=== PATIENT | male | born 1960 | race Caucasian/White ===

== ENCOUNTER 2016-05-09 01:36 | Inpatient (IN) | payer MEDICARE, OTHER ==
[2016-05-09] MEDS ORDERED: SODIUM CHLORIDE 0.9% 1,000 ML IV STA (01:47)
[2016-05-09] MEDS ORDERED: IPRATROPIUM-ALBUTEROL 3 ML NEB INHALATION STA (01:48)
[2016-05-09] MEDS ORDERED: ACETAMINOPHEN TAB 500 MG TAB PO STA (01:56)
[2016-05-09] MEDS ORDERED: guaiFENesin-DM 600/30MG 1 EACH TAB.ER.12H PO STA (01:57)
--- NOTE | 2016-05-09 02:01 | ED ---
General Adult HPI - General Chief complaint: Chest Pain Stated complaint: Chest Pain/SOB Time Seen by Provider: 05/09/16 01:46 Source: patient, RN notes reviewed Mode of arrival: wheelchair Limitations: no limitations - History of Present Illness Initial comments: Patient is a 55-year-old male with a chief complaint of a productive cough for approximately 3 days. Patient reports that over the past day he has developed chest pain, which patient relates to this cough. Patient reports that he feels as if he is not able to lay totally flat and that makes him become short of breath. He has a significant past medical history of quadruple bypass, hypertension, is a smoker and diabetes. Patient reports that his blood sugars have been uncontrolled over the past few months. Patient states that he initially HAD A cold but he feels is now settled into the lower lungs. He has had no Motrin or Tylenol but does present emergency department with a fever and chills. Patient states that he also has coughed so hard to the point where he has felt that he needs to vomit. Patient denies any recent fback pain, abdominal pain, nausea vomiting, numbness or tingling, dysuria or hematuria, constipation or diarrhea, headaches or visual changes, or any other current symptoms - Related Data Home Medications Medication Instructions Recorded Confirmed Clopidogrel [Plavix] 75 mg PO DAILY 08/16/13 05/09/16 Isosorbide Mononitrate [Imdur] 60 mg PO DAILY 08/16/13 05/09/16 amLODIPine [Norvasc] 5 mg PO DAILY 08/16/13 05/09/16 metFORMIN HCL 1,000 mg PO BID 08/16/13 05/09/16 Atorvastatin [Lipitor] 80 mg PO HS 12/02/14 05/09/16 Carvedilol [Coreg] 3.125 mg PO BID 12/02/14 05/09/16 Losartan [Cozaar] 25 mg PO DAILY 12/02/14 05/09/16 Montelukast [Singulair] 10 mg PO DAILY 12/02/14 05/09/16 Spironolactone [Aldactone] 25 mg PO DAILY 12/02/14 05/09/16 Atenolol [Tenormin] 50 mg PO BID 05/19/15 05/09/16 Famotidine [Pepcid] 40 mg PO HS 05/19/15 05/09/16 Insulin Detemir [Levemir] 48 unit SQ HS 05/19/15 05/09/16 Metoprolol Tartrate [Lopressor] 50 mg PO BID 05/19/15 05/09/16 Metoprolol Tartrate [Lopressor] 100 mg PO BID 05/19/15 05/09/16 Allergies Allergy/AdvReac Type Severity Reaction Status Date / Time No Known Allergies Allergy Verified 05/09/16 01:43 Review of Systems ROS Statement: Those systems with pertinent positive or pertinent negative responses have been documented in the HPI. ROS Other: All systems not noted in ROS Statement are negative. Past Medical History Past Medical History: Coronary Artery Disease (CAD), Chest Pain / Angina, Heart Failure, COPD, Diabetes Mellitus, Hyperlipidemia, Hypertension, Myocardial Infarction ([place]), Pneumonia Additional Past Medical History / Comment(s): X5 [place] Last Myocardial Infarction Date:: 2012 History of Any Multi-Drug Resistant Organisms: MRSA Date of last positivie culture/infection: 08/04/2010 MDRO Source:: right leg wound Past Surgical History: Coronary Bypass/CABG, Heart Catheterization With Stent, Hernia Repair Additional Past Surgical History / Comment(s): QUAD BYPASS, LT INGUINAL HERNIA REPAIR RT HAND RING FINGER LOST TIP OF FINGER, PT STATED HAS 5 CARDIAC STENTS, Past Anesthesia/Blood Transfusion Reactions: No Reported Reaction Date of Last Stent Placement:: 2012 Past Psychological History: No Psychological Hx Reported Smoking Status: Current every day smoker Past Alcohol Use History: None Reported Additional Past Alcohol Use History / Comment(s): STARTED SMOKING AT AGE 11 SMOKES 2 PACKS EVERY 3 DAYS Past Drug Use History: None Reported - Past Family History Father Additional Family Medical History / Comment(s): AT AGE 46 FROM COMPLICATIONS FROM ALCOHOLISM Mother Family Medical History: Cancer Additional Family Medical History / Comment(s): AT AGE 71 CANCER General Exam - General Exam Comments Initial Comments: Patient is a pleasant 55-year-old male. He is having a significant productive cough and does appear to be ill. Limitations: no limitations General appearance: alert, in no apparent distress Head exam: Present: atraumatic, normocephalic, normal inspection Eye exam: Present: normal appearance, PERRL, EOMI. Absent: scleral icterus, conjunctival injection, periorbital swelling ENT exam: Present: normal exam, mucous membranes moist. Absent: normal oropharynx (Erythematous oropharynx) Neck exam: Present: normal inspection. Absent: tenderness, meningismus, lymphadenopathy Respiratory exam: Present: normal lung sounds bilaterally, wheezes (Bilateral wheezes and rhonchi), rhonchi, other (Significant productive cough.). Absent: respiratory distress, rales, stridor Cardiovascular Exam: Present: regular rate, normal rhythm, normal heart sounds. Absent: systolic murmur, diastolic murmur, rubs, gallop, clicks GI/Abdominal exam: Present: soft, normal bowel sounds. Absent: distended, tenderness, guarding, rebound, rigid Extremities exam: Present: normal inspection, full ROM, normal capillary refill. Absent: tenderness, pedal edema, joint swelling, calf tenderness Back exam: Present: normal inspection Neurological exam: Present: alert, oriented X3, CN II-XII intact Psychiatric exam: Present: normal affect, normal mood Skin exam: Present: warm, dry, intact, normal color. Absent: rash Course Vital Signs 05/09/16 05/09/16 05/09/16 01:38 02:00 02:07 Temperature 99.8 F H Pulse Rate 118 H 110 H 104 H Respiratory 20 Rate Blood Pressure 183/88 O2 Sat by Pulse 97 Oximetry Medical Decision Making - Medical Decision Making Patient is a 55-year-old male with a chief complaint of a productive cough for approximately 3 days. Patient reports that over the past day he has developed chest pain, which patient relates to this cough. He has a significant past medical history of quadruple bypass, hypertension, is a smoker and diabetes. Patient has a white count of 7.4. Sodium 134, potassium 5.8. Patient's glucose is elevated at 307. Patient does have a negative influenza screen. Patient does have an elevated troponin of 0.048. Chest x-ray shows no acute infiltrates however it does show evidence of cardiomegaly. Currently pending BNP. Patient continues to have a productive cough after breathing treatments. Sputum cultures were obtained. Patient was given IV Levaquin, promethazine with codeine, and Mucinex. Patient will be started on IV heparin for NSTEMI of elevated troponin of 0.048. Patient's EKG was reviewed at this time and showed no significant acute changes from previous EKG on May 2015. Patient will be admitted for repeat cardiac enzymes, IV antibiotics and further treatment. Patient is in agreement with the treatment plan will comply. - Lab Data Result diagrams: 05/09/16 02:11 05/09/16 02:11 Lab Results 05/09/16 05/09/16 05/09/16 Range/Units 02:11 02:11 02:11 WBC 7.4 (3.8-10.6) k/uL RBC 5.22 (4.30-5.90) m/uL Hgb 17.1 (13.0-17.5) gm/dL Hct 50.0 (39.0-53.0) % MCV 95.7 (80.0-100.0) fL MCH 32.8 (25.0-35.0) pg MCHC 34.3 (31.0-37.0) g/dL RDW 13.3 (11.5-15.5) % Plt Count 142 L (150-450) k/uL Neutrophils % 77 % Lymphocytes % 13 % Monocytes % 7 % Eosinophils % 2 % Basophils % 1 % Neutrophils # 5.7 (1.3-7.7) k/uL Lymphocytes # 1.0 (1.0-4.8) k/uL Monocytes # 0.5 (0-1.0) k/uL Eosinophils # 0.1 (0-0.7) k/uL Basophils # 0.1 (0-0.2) k/uL PT (9.0-12.0) sec INR (<1.1) APTT (22.0-30.0) sec Sodium 134 L (137-145) mmol/L Potassium 5.8 H (3.5-5.1) mmol/L Chloride 100 (98-107) mmol/L Carbon Dioxide 22 (22-30) mmol/L Anion Gap 12 mmol/L BUN 13 (9-20) mg/dL Creatinine 0.70 (0.66-1.25) mg/dL Est GFR (MDRD) Af Amer >60 (>60 ml/min/1.73 sqM) Est GFR (MDRD) Non-Af >60 (>60 ml/min/1.73 sqM) Glucose 307 H (74-99) mg/dL Plasma Lactic Acid [place] (0.7-2.0) mmol/L Calcium 9.1 (8.4-10.2) mg/dL Magnesium 1.7 (1.6-2.3) mg/dL Total Bilirubin 1.4 H (0.2-1.3) mg/dL AST 50 (17-59) U/L ALT 28 (21-72) U/L Alkaline Phosphatase 96 (38-126) U/L Total Creatine Kinase 135 (55-170) U/L CK-MB (CK-2) 1.0 (0.0-2.4) ng/mL CK-MB (CK-2) Rel Index 0.7 Troponin I 0.048 H* (0.000-0.034) ng/mL Total Protein 7.9 (6.3-8.2) g/dL Albumin 4.5 (3.5-5.0) g/dL Influenza Type A RNA (Not Detectd) Influenza Type B (PCR) (Not Detectd) 05/09/16 05/09/16 05/09/16 Range/Units 02:11 02:11 02:11 WBC (3.8-10.6) k/uL RBC (4.30-5.90) m/uL Hgb (13.0-17.5) gm/dL Hct (39.0-53.0) % MCV (80.0-100.0) fL MCH (25.0-35.0) pg MCHC (31.0-37.0) g/dL RDW (11.5-15.5) % Plt Count (150-450) k/uL Neutrophils % % Lymphocytes % % Monocytes % % Eosinophils % % Basophils % % Neutrophils # (1.3-7.7) k/uL Lymphocytes # (1.0-4.8) k/uL Monocytes # (0-1.0) k/uL Eosinophils # (0-0.7) k/uL Basophils # (0-0.2) k/uL PT 11.4 (9.0-12.0) sec INR 1.1 (<1.1) APTT 27.1 (22.0-30.0) sec Sodium (137-145) mmol/L Potassium (3.5-5.1) mmol/L Chloride (98-107) mmol/L Carbon Dioxide (22-30) mmol/L Anion Gap mmol/L BUN (9-20) mg/dL Creatinine (0.66-1.25) mg/dL Est GFR (MDRD) Af Amer (>60 ml/min/1.73 sqM) Est GFR (MDRD) Non-Af (>60 ml/min/1.73 sqM) Glucose (74-99) mg/dL Plasma Lactic Acid [place] 1.8 (0.7-2.0) mmol/L Calcium (8.4-10.2) mg/dL Magnesium (1.6-2.3) mg/dL Total Bilirubin (0.2-1.3) mg/dL AST (17-59) U/L ALT (21-72) U/L Alkaline Phosphatase (38-126) U/L Total Creatine Kinase (55-170) U/L CK-MB (CK-2) (0.0-2.4) ng/mL CK-MB (CK-2) Rel Index Troponin I (0.000-0.034) ng/mL Total Protein (6.3-8.2) g/dL Albumin (3.5-5.0) g/dL Influenza Type A RNA Not Detected (Not Detectd) Influenza Type B (PCR) Not Detected (Not Detectd) 05/09/16 02:52 EKG shows sinus tachycardia with occasional PVCs. There is evidence of possible left atrial enlargement. Nonspecific and temperature regular block. There is possible inferior infarct age undetermined. Ventricular rate of 104 bpm. AR interval 140 ms. QRS duration 126 ms. QT/UTC 360/473 ms. Compared this EKG from a previous EKG of 05/20/2015. There are similar findings on this EKG as well. I did show Sayed this EKG. - Radiology Data Radiology results: report reviewed Chest x-ray shows Cardiomegaly. Chest x-ray remains unchanged, no evidence of pneumonia or active infiltrates. Disposition Clinical Impression: NSTEMI (non-ST elevated myocardial infarction), Diabetes, Hyperlipemia, Hx of CABG, Chest pain, COPD exacerbation, Fever Disposition: ADMITTED IP TO THIS HOSP Condition: Stable Referrals: Byron Torres MD [Primary Care Provider] - 1-2 days Time of Disposition: 03:57
[2016-05-09] MEDS ORDERED: LEVOFLOXACIN 750MG-D5W PMX 750 MG in DEXTROSE/WATER 1 150ML.BAG IVPB STA (02:13)
[2016-05-09 02:27] LABS: Basophils # (A) 0.1 k/uL (0-0.2); Basophils % (A) 1 %; CH 33.6; CHCM 35.3; Eosinophils # (A) 0.1 k/uL (0-0.7); Eosinophils % (A) 2 %; HGB 17.1 gm/dL (13.0-17.5); Luc # (Auto) 0.11; Luc % (Auto) 2; Lymphocytes % (A) 13 %; MCH 32.8 pg (25.0-35.0); MCHC 34.3 g/dL (31.0-37.0); MCV 95.7 fL (80.0-100.0); Mean Platelet Volume 9.8; Monocytes # (A) 0.5 k/uL (0-1.0); Monocytes % (A) 7 %; Neutrophils # (A) 5.7 k/uL (1.3-7.7); Neutrophils % (A) 77 %; RBC 5.22 m/uL (4.30-5.90); RDW 13.3 % (11.5-15.5); WBC 7.4 k/uL (3.8-10.6); WBC (Perox) 7.08
[2016-05-09 02:40] LABS: ALT 28 U/L (21-72); AST 50 U/L (17-59); Alkaline Phosphatase 96 U/L (38-126); Anion Gap 12 mmol/L; Blood Urea Nitrogen 13 mg/dL (9-20); Calcium 9.1 mg/dL (8.4-10.2); Carbon Dioxide 22 mmol/L (22-30); Chloride 100 mmol/L (98-107); Glucose 307 mg/dL (74-99); Magnesium 1.7 mg/dL (1.6-2.3); Non-African American GFR(MDRD) >60 (>60 ml/min/1.73 sqM); Sodium 134 mmol/L (137-145); Total Bilirubin 1.4 mg/dL (0.2-1.3); Total Protein 7.9 g/dL (6.3-8.2)
[2016-05-09] MEDS ORDERED: PROMETHAZ-COD 6.25-10 MG/5 ML 5 ML CUP PO PRN (02:42)
[2016-05-09 02:44] LABS: Potassium 5.8 mmol/L (3.5-5.1)
--- NOTE | 2016-05-09 02:53 | XR ---
EXAM: XR Chest, 2 Views. CLINICAL HISTORY: Reason: Chest Pain TECHNIQUE: Frontal and lateral views of the chest. COMPARISON: 05/19/15 FINDINGS: Lungs: Unremarkable. No consolidation. Pleural space: Unremarkable. No pneumothorax. Heart: Cardiomegaly, unchanged. Mediastinum: Unremarkable. Bones/joints: Sternotomy wires. IMPRESSION: Cardiomegaly, unchanged.
[2016-05-09 03:02] LABS: INR 1.1 (<1.1); Partial Thromboplastin Time 27.1 sec (22.0-30.0); Prothrombin Time 11.4 sec (9.0-12.0)
[2016-05-09 03:14] LABS: Troponin I 0.048 ng/mL (0.000-0.034)
[2016-05-09] MEDS ORDERED: HEPARIN SODIUM,PORCINE 5,000 UNIT/ML 1 ML VIAL IV ONE (03:50)
[2016-05-09] MEDS ORDERED: NITROGLYCERIN SL TABS 0.4 MG TAB SUBLINGUAL PRN (03:50)
[2016-05-09] MEDS ORDERED: HEPARIN SODIUM,PORCINE/D5W PMX 25,000 UNIT in DEXTROSE/WATER 1 500ML.BAG IV SCH (04:00)
[2016-05-09] MEDS ORDERED: SODIUM CHLORIDE 0.9% 1,000 ML IV SCH (04:15)
[2016-05-09 05:03] LABS: Glucose,Whole Blood 267 mg/dL (75-99)
[2016-05-09] MEDS ORDERED: INSULIN REGULAR 100 UNIT/ML VIAL SQ ONE (05:04)
[2016-05-09 06:08] VITALS: BMI 35.4
[2016-05-09 06:33] LABS: Glucose,Whole Blood 275 mg/dL (75-99)
[2016-05-09] MEDS: INSULIN LISPRO (humaLOG) 300 UNIT/3 ML VIAL SQ SCH ×4 (06:38→22:38)
[2016-05-09] MEDS: IPRATROPIUM-ALBUTEROL 3 ML NEB INHALATION PRN ×2 (07:42→11:27)
--- NOTE | 2016-05-09 08:32 | P.CRDCN ---
History of Present Illness Consult date: 05/09/16 Requesting physician: Byron Torres Consult reason: chest pain Chief complaint: Shortness of breath History of present illness: This is a 55-year-old gentleman with known history of coronary artery disease and prior bypass surgery in October 2012, ischemic cardio myopathy, diabetes, hypertension, hyperlipidemia, nicotine dependence, who follows regularly with Dr. Ryan in the office. Most recently patient underwent a cardiac catheterization in February 2014 which revealed a patent PORTER to the LAD , saphenous vein graft to the right coronary artery was patent, saphenous vein graft to the obtuse marginal branch is totally closed off, and saphenous vein graft to the diagonal is closed off at the distal anastomotic site with no antegrade flow, medical therapy advised at that time. He presents to the hospital on this occasion with symptoms of 2-3 day duration of worsening shortness of breath. He denies chest pain, unless he has a harsh cough. Denies fever or chills, he has had a cough, nonproductive. EKG showed a sinus rhythm with occasional PVCs and nonspecific ST-T wave changes. Chest x-ray unremarkable. Laboratory data reviewed, WBC 7.4, hemoglobin 17.2, platelet count 142. Sodium 134, potassium 5.8, BUN 13, creatinine 0.7. Mag level I.7, troponin 0.048, BNP level 1380. The pressure on arrival 183/88, heart rate 118 , 97% on room air. Blood pressure this morning 150/70 with heart rate in the 80s. 98% on room air. At the time of my examination this morning, patient states that he does feel better overall. Past Medical History Past Medical History: Coronary Artery Disease (CAD), Chest Pain / Angina, Heart Failure, COPD, Diabetes Mellitus, Hyperlipidemia, Hypertension, Myocardial Infarction ([place]), Pneumonia Additional Past Medical History / Comment(s): X5 [place] Last Myocardial Infarction Date:: 2012 History of Any Multi-Drug Resistant Organisms: MRSA Date of last positivie culture/infection: 08/04/2010 MDRO Source:: right leg wound Past Surgical History: Coronary Bypass/CABG, Heart Catheterization With Stent, Hernia Repair Additional Past Surgical History / Comment(s): QUAD BYPASS, LT INGUINAL HERNIA REPAIR RT HAND RING FINGER LOST TIP OF FINGER, PT STATED HAS 5 CARDIAC STENTS, Past Anesthesia/Blood Transfusion Reactions: No Reported Reaction Date of Last Stent Placement:: 2013 Past Psychological History: No Psychological Hx Reported Smoking Status: Current every day smoker Past Alcohol Use History: None Reported Additional Past Alcohol Use History / Comment(s): STARTED SMOKING AT AGE 11 SMOKES 2 PACKS EVERY 3 DAYS Past Drug Use History: None Reported - Past Family History Father Additional Family Medical History / Comment(s): AT AGE 46 FROM COMPLICATIONS FROM ALCOHOLISM Mother Family Medical History: Cancer Additional Family Medical History / Comment(s): AT AGE 71 CANCER Medications and Allergies Home Medications Medication Instructions Recorded Confirmed Type Clopidogrel [Plavix] 75 mg PO DAILY 08/16/13 05/09/16 History Isosorbide Mononitrate [Imdur] 60 mg PO DAILY 08/16/13 05/09/16 History amLODIPine [Norvasc] 5 mg PO DAILY 08/16/13 05/09/16 History metFORMIN HCL 1,000 mg PO BID 08/16/13 05/09/16 History Atorvastatin [Lipitor] 80 mg PO HS 12/02/14 05/09/16 History Carvedilol [Coreg] 3.125 mg PO BID 12/02/14 05/09/16 History Losartan [Cozaar] 25 mg PO DAILY 12/02/14 05/09/16 History Montelukast [Singulair] 10 mg PO DAILY 12/02/14 05/09/16 History Spironolactone [Aldactone] 25 mg PO DAILY 12/02/14 05/09/16 History Atenolol [Tenormin] 50 mg PO BID 05/19/15 05/09/16 History Famotidine [Pepcid] 40 mg PO HS 05/19/15 05/09/16 History Insulin Detemir [Levemir] 48 unit SQ HS 05/19/15 05/09/16 History Metoprolol Tartrate [Lopressor] 100 mg PO BID 05/19/15 05/09/16 History Allergies Allergy/AdvReac Type Severity Reaction Status Date / Time No Known Allergies Allergy Verified 05/09/16 01:43 Physical Exam Vitals: Vital Signs Temp Pulse Pulse Resp BP Pulse Ox 05/09/16 07:54 102 H 05/09/16 07:44 100 98 05/09/16 07:28 97 F L 84 16 152/72 94 L 05/09/16 06:24 98 20 05/09/16 04:54 96.6 F L 98 20 158/84 95 Intake and Output 05/08/16 05/09/16 05/09/16 22:59 06:59 14:59 Intake Total 200 Balance 200 Intake: Intake, IV Titration 200 Amount Sodium Chloride 0.9% 1, 200 000 ml @ 100 mls/hr IV . Q10H [facility] Rx#:[id number] Other: Voiding Method Toilet Weight 112.2 kg PHYSICAL EXAMINATION: HEENT: Head is atraumatic, normocephalic. Pupils equal, round. Neck is supple. There is no elevated jugular venous pressure. HEART EXAMINATION: Heart S1 and S2 with systolic murmur is heard CHEST EXAMINATION: Lungs reveal expiratory wheezes ABDOMEN: Soft, nontender. Bowel sounds are heard. No organomegaly noted. EXTREMITIES:1+ peripheral pulses with no evidence of peripheral edema and no calf tenderness noted. NEUROLOGIC patient is awake, alert and oriented -3. . Results 05/09/16 08:01 05/09/16 02:11 Current Medications Generic Name Dose Route Start Last Admin Trade Name Freq PRN Reason Stop Dose Admin Albuterol/Ipratropium 3 ml 05/09/16 03:54 05/09/16 07:42 Duoneb 0.5 Mg-3 Mg/3 Ml Soln INHALATION 3 ml RT-Q4H PRN Administration Shortness Of Breath Or Wheezing Amlodipine Besylate 5 mg 05/09/16 09:00 Norvasc PO DAILY [facility] Aspirin 325 mg 05/10/16 09:00 Aspirin PO DAILY [facility] Atenolol 50 mg 05/09/16 09:00 Tenormin PO BID [facility] Atorvastatin Calcium 80 mg 05/09/16 21:00 Lipitor PO HS [facility] Benzonatate 100 mg 05/09/16 09:00 Tessalon Perles PO TID [facility] Famotidine 40 mg 05/09/16 21:00 Pepcid PO HS [facility] Heparin Sodium/Dextrose 25,000 500 mls @ 20.19 mls/hr 05/09/16 04:00 04:35 unit/ IV Solution IV 8.31 units/kg/hr .Q24H [facility] 20 mls/hr Protocol Administration 8.4 UNITS/KG/HR Levofloxacin 750 mg/ IV 150 mls @ 100 mls/hr 05/10/16 09:00 Solution IVPB Q24H [facility] Sodium Chloride 1,000 mls @ 100 mls/hr 05/09/16 04:15 05/09/16 04:35 Saline 0.9% IV 100 mls/hr .Q10H [facility] Administration Insulin Detemir 48 unit 05/09/16 21:00 05/09/16 05:15 Levemir SQ 48 unit HS [facility] Administration Insulin Human Lispro 0 unit 05/09/16 07:30 05/09/16 06:38 Humalog SQ 6 unit ACHS [facility] Administration Protocol Isosorbide Mononitrate 60 mg 05/09/16 09:00 Imdur PO DAILY [facility] Losartan Potassium 25 mg 05/09/16 09:00 Cozaar PO DAILY [facility] Metformin HCl 1,000 mg 05/09/16 09:00 Glucophage PO BID [facility] Metoprolol Tartrate 50 mg 05/09/16 09:00 Lopressor PO BID [facility] Montelukast Sodium 10 mg 05/09/16 09:00 Singulair PO DAILY [facility] Nicotine 1 patch 05/09/16 09:00 Habitrol 21mg/24hr Patch TRANSDERM DAILY [facility] Nitroglycerin 0.4 mg 05/09/16 03:50 Nitrostat SUBLINGUAL Q5M PRN Chest Pain Promethazine HCl/Codeine 5 ml 05/09/16 02:42 05/09/16 03:06 Phenergan With Codeine PO 5 ml Q4H PRN Administration Cold Symptoms Spironolactone 25 mg 05/09/16 09:00 Aldactone PO DAILY [facility] Intake and Output 05/08/16 05/09/16 05/09/16 22:59 06:59 14:59 Intake Total 200 Balance 200 Intake: Intake, IV Titration 200 Amount Sodium Chloride 0.9% 1, 200 000 ml @ 100 mls/hr IV . Q10H [facility] Rx#:[id number] Other: Voiding Method Toilet Weight 112.2 kg EKG Interpretations (text) EKG shows a normal sinus rhythm with nonspecific ST-T wave changes and occasional PVC Assessment and Plan Plan: Assessment and plan #1 symptoms of progressive shortness of breath, could be combination of systolic congestive heart failure along with exacerbation of COPD. BNP level 1380. #2 abnormal troponin, patient denies having any chest discomfort, other than pain in the chest with coughing. EKG shows normal sinus rhythm with occasional PVC and nonspecific ST-T wave changes, similar to prior EKGs. We will obtain to further troponins. #3 known history of coronary artery disease with prior bypass surgery #4 nicotine dependence #5 COPD #6 hypertension #7 hyperlipidemia #8 ischemic cardiomyopathy Plan We will obtain a repeat echocardiogram with Doppler study. Decrease IV fluids to KVO. Give the patient one time dose of 40 mg IV Lasix. Decrease aspirin to 81 mg daily. Obtain to further troponin values. Further recommendations to follow. DNP note has been reviewed, I agree with a documented findings and plan of care. Patient was seen and examined.
[2016-05-09 08:34] LABS: Mean Platelet Volume 9.6
[2016-05-09 08:59] LABS: Hemoglobin A1C 9.3 % (4.2-6.1)
[2016-05-09] MEDS ORDERED: ATENOLOL 50 MG TAB PO SCH (09:00)
[2016-05-09] MEDS ORDERED: METOPROLOL TARTRATE 50 MG TAB PO SCH (09:00)
[2016-05-09] MEDS ORDERED: SPIRONOLACTONE 25 MG TAB PO SCH (09:00)
[2016-05-09] MEDS ORDERED: amLODIPine 5 MG TAB PO SCH (09:00)
--- NOTE | 2016-05-09 09:00 | P.HPIM ---
History of Present Illness H&P Date: 05/09/16 Chief Complaint: Chest pain This is a history and physical on a 55-year-old white male very well-known to my office who has worsening upper respiratory congestion and productive cough for the last 3 days. However, he has not developed chest pressure and chest pain. He states laying down give some some mild orthopnea. Underlying history includes quadruple bypass hypertension diabetes. Blood sugars have been fairly high and have been trending high for the last 6 months. The patient denies any abdominal pain, nausea vomiting dysuria or hematuria. No headaches or visual problems stated. Review of Systems Constitutional: Reports fatigue, Reports fever Eyes: denies blurred vision, denies pain Ears, nose, mouth and throat: Denies headache, Denies sore throat Cardiovascular: Reports chest pain Respiratory: Denies cough Gastrointestinal: Denies abdominal pain, Denies diarrhea, Denies nausea, Denies vomiting Musculoskeletal: Denies myalgias Past Medical History Past Medical History: Coronary Artery Disease (CAD), Chest Pain / Angina, Heart Failure, COPD, Diabetes Mellitus, Hyperlipidemia, Hypertension, Myocardial Infarction ([place]), Pneumonia Additional Past Medical History / Comment(s): X5 [place] Last Myocardial Infarction Date:: 2012 History of Any Multi-Drug Resistant Organisms: MRSA Date of last positivie culture/infection: 08/04/2010 MDRO Source:: right leg wound Past Surgical History: Coronary Bypass/CABG, Heart Catheterization With Stent, Hernia Repair Additional Past Surgical History / Comment(s): QUAD BYPASS, LT INGUINAL HERNIA REPAIR RT HAND RING FINGER LOST TIP OF FINGER, PT STATED HAS 5 CARDIAC STENTS, Past Anesthesia/Blood Transfusion Reactions: No Reported Reaction Date of Last Stent Placement:: 2012 Past Psychological History: No Psychological Hx Reported Smoking Status: Current every day smoker Past Alcohol Use History: None Reported Additional Past Alcohol Use History / Comment(s): STARTED SMOKING AT AGE 11 SMOKES 2 PACKS EVERY 3 DAYS Past Drug Use History: None Reported - Past Family History Father Additional Family Medical History / Comment(s): AT AGE 46 FROM COMPLICATIONS FROM ALCOHOLISM Mother Family Medical History: Cancer Additional Family Medical History / Comment(s): AT AGE 71 CANCER Medications and Allergies Home Medications Medication Instructions Recorded Confirmed Type Clopidogrel [Plavix] 75 mg PO DAILY 08/16/13 05/09/16 History Isosorbide Mononitrate [Imdur] 60 mg PO DAILY 08/16/13 05/09/16 History amLODIPine [Norvasc] 5 mg PO DAILY 08/16/13 05/09/16 History metFORMIN HCL 1,000 mg PO BID 08/16/13 05/09/16 History Atorvastatin [Lipitor] 80 mg PO HS 12/02/14 05/09/16 History Carvedilol [Coreg] 3.125 mg PO BID 12/02/14 05/09/16 History Losartan [Cozaar] 25 mg PO DAILY 12/02/14 05/09/16 History Montelukast [Singulair] 10 mg PO DAILY 12/02/14 05/09/16 History Spironolactone [Aldactone] 25 mg PO DAILY 12/02/14 05/09/16 History Atenolol [Tenormin] 50 mg PO BID 05/19/15 05/09/16 History Famotidine [Pepcid] 40 mg PO HS 05/19/15 05/09/16 History Insulin Detemir [Levemir] 48 unit SQ HS 05/19/15 05/09/16 History Metoprolol Tartrate [Lopressor] 100 mg PO BID 05/19/15 05/09/16 History Allergies Allergy/AdvReac Type Severity Reaction Status Date / Time No Known Allergies Allergy Verified 05/09/16 01:43 Physical Exam Vitals: Vital Signs Temp Pulse Pulse Resp BP Pulse Ox 05/09/16 07:54 102 H 05/09/16 07:44 100 98 05/09/16 07:28 97 F L 84 16 152/72 94 L 05/09/16 06:24 98 20 05/09/16 04:54 96.6 F L 98 20 158/84 95 Intake and Output 05/08/16 05/09/16 05/09/16 22:59 06:59 14:59 Intake Total 200 118 Balance 200 118 Intake: Intake, IV Titration 200 Amount Sodium Chloride 0.9% 1, 200 000 ml @ 100 mls/hr IV . Q10H [facility] Rx#:[id number] Oral 118 Other: Voiding Method Toilet Weight 112.2 kg - Constitutional General appearance: obese - EENT Eyes: no abnormal pupil - Neck Neck: no other - Respiratory Respiratory: bilateral: diminished - Cardiovascular Rhythm: regular Heart sounds: normal: S1, S2 - Gastrointestinal General gastrointestinal: soft, no tenderness - Neurologic Neurologic: CNII-XII intact - Musculoskeletal Musculoskeletal: gait normal Results CBC & Chem 7: 05/09/16 08:01 05/09/16 02:11 Labs: Abnormal Lab Results - Last 24 Hours (Table) 05/09/16 05/09/16 05/09/16 Range/Units 05:00 06:31 08:01 Plt Count 140 L (150-450) k/uL POC Glucose (mg/dL) 267 H 275 H (75-99) mg/dL Chest x-ray: report reviewed Thrombosis Risk Factor Assmnt - Choose All That Apply Any of the Below Risk Factors Present?: Yes Each Factor Represents 1 point: Abnormal pulmonary function (COPD), Age 41-60 years, Obesity (BMI >25) Other congenital or acquired thrombophilia - If yes, enter type in comment: No Thrombosis Risk Factor Assessment Total Risk Factor Score: 3 Thrombosis Risk Factor Assessment Level: Moderate Risk Assessment and Plan (1) COPD exacerbation Status: Acute (2) Chest pain Status: Acute (3) Fever Status: Acute (4) Diabetes Status: Chronic (5) Congestive heart failure Status: Acute (6) HTN (hypertension) Status: Chronic Plan: Go ahead and rule out myocardial infarction. Cardiology has been consulted. Question need for element of treatment of pulmonology and steroid treatment for COPD. Smoking cessation discussed the patient at length. Otherwise, he is a full code at this time. Time with Patient: Less than 30
[2016-05-09] MEDS: LOSARTAN 25 MG TAB PO SCH (09:02)
[2016-05-09] MEDS: ISOSORBIDE MONONITRATE ER 60 MG TAB.ER.24H PO SCH (09:02)
[2016-05-09] MEDS: NICOTINE 21MG/24HR PATCH TRANSDERM SCH (09:03)
[2016-05-09] MEDS: MONTELUKAST 10 MG TAB PO SCH (09:03)
[2016-05-09] MEDS: metFORMIN 500 MG TAB PO SCH ×2 (09:03→20:15)
[2016-05-09] MEDS: ASPIRIN 81 MG CHEW PO SCH (09:03)
[2016-05-09] MEDS: BENZONATATE 100 MG CAP PO SCH ×3 (09:03→22:38)
[2016-05-09 09:10] LABS: Creatine Kinase MB 0.9 ng/mL (0.0-2.4)
[2016-05-09 09:15] LABS: Troponin I 0.055 ng/mL (0.000-0.034)
[2016-05-09] MEDS ORDERED: CARVEDILOL 6.25 MG TAB PO SCH (09:15)
--- NOTE | 2016-05-09 10:01 | P.PN ---
Progress Note - Text This is an addendum to the dictated cardiology consultation. The patient has a history of CABG, severe ischemic cardiomyopathy who presents with cough, chills and dyspnea. He has a known history of COPD and continues to smoke. He has chest discomfort when he coughs. He has no peripheral edema, no PND or orthopnea. He denies any dizziness, palpitations or syncope. On his physical examination he has decreased air exchange and no peripheral edema. His lab data shows minimal elevation of the troponin most likely representing a type II event as well as mild elevation of his d-dimer. I do not believe that he is in congestive heart failure. His symptoms are consistent with exacerbation of COPD. It is likely that he has bronchitis. There is no evidence suggest acute coronary syndrome. I will stop the amlodipine, decrease the dose of spironolactone because of the hyperkalemia. I will increase the dose of the beta cami and if his potassium is normal increase the dose of losartan. We will obtain an echocardiogram with Doppler and if his systolic function remains poor then he should be evaluated for possible ICD implant. Thank you for this consult we will follow with you.
[2016-05-09 11:17] LABS: Glucose,Whole Blood 178 mg/dL (75-99)
--- NOTE | 2016-05-09 12:05 | ECHOF ---
Referral Reason:chest pain MEASUREMENTS -------- HEIGHT: 177.8 cm WEIGHT: 112.0 kg BP: 152/72 RVIDd: 2.8 cm (< 3.3) IVSd: 1.5 cm (0.6 - 1.1) LVIDd: 6.2 cm (3.9 - 5.3) LVPWd: 1.5 cm (0.6 - 1.1) IVSs: 2.6 cm LVIDs: 5.0 cm LVPWs: 1.8 cm LA Diam: 4.8 cm (2.7 - 3.8) LAESV Index (A-L): 21.07 ml/m Ao Diam: 3.8 cm (2.0 - 3.7) AV Cusp: 2.1 cm (1.5 - 2.6) LA Diam: 4.2 cm (2.7 - 3.8) MV EXCURSION: 13.189 mm (> 18.000) MV EF SLOPE: 55 mm/s (70 - 150) EPSS: 2.3 cm MV E Colin: 0.79 m/s MV DecT: 107 ms MV A Colin: 0.56 m/s MV E/A Ratio: 1.42 RAP: 5.00 mmHg FINDINGS -------- Sinus rhythm. This was a technically adequate study. The left ventricle is mildly dilated. There is mild concentric left ventricular hypertrophy. There is moderate global hypokinesis of LV . Overall left ventricular systolic function is moderate-severely impaired with, an EF between 30 - 35 %. Pseudonormal LV filling pattern, consistent with elevated LA pressure. The right ventricle is normal in size. Normal LA size by volume 22+/-6 ml/m2. The right atrium is normal in size. Aortic valve is trileaflet and is mildly thickened. The mitral valve leaflets are mildly thickened. Mild mitral annular calcification present. Trace tricuspid regurgitation present. There is mild pulmonary hypertension. The right ventricular systolic pressure, as measured by Doppler, is {RVSP}. Trace/mild (physiologic) pulmonic regurgitation. The aortic root size is normal. The inferior vena cava is mildly dilated. There is no pericardial effusion. CONCLUSIONS -------- 1. Sinus rhythm. 2. The right atrium is normal in size. 3. Aortic valve is trileaflet and is mildly thickened. 4. The mitral valve leaflets are mildly thickened. 5. Mild mitral annular calcification present. 6. Trace tricuspid regurgitation present. 7. There is mild pulmonary hypertension. 8. The right ventricular systolic pressure, as measured by Doppler, is {RVSP}. 9. Trace/mild (physiologic) pulmonic regurgitation. 10. The aortic root size is normal. 11. The inferior vena cava is mildly dilated. 12. This was a technically adequate study. 13. There is no pericardial effusion. 14. The left ventricle is mildly dilated. 15. There is mild concentric left ventricular hypertrophy. 16. There is moderate global hypokinesis of LV . 17. Overall left ventricular systolic function is moderate-severely impaired with, an EF between 30 - 35 %. 18. Pseudonormal LV filling pattern, consistent with elevate LA pressure. 19. The right ventricle is normal in size. 20. Normal LA size by volume 22+/-6 ml/m2. BLOCK FEEDER: Finn De Leon RDCS
[2016-05-09 16:10] LABS: Troponin I 0.05 ng/mL (0.000-0.034)
[2016-05-09 16:51] LABS: Glucose,Whole Blood 155 mg/dL (75-99)
[2016-05-09] MEDS: CARVEDILOL 12.5 MG TAB PO SCH (16:55)
[2016-05-09] MEDS ORDERED: FAMOTIDINE 20 MG TAB PO SCH (21:00)
[2016-05-09] MEDS ORDERED: INSULIN DETEMIR 100 UNIT/ML 10 ML VIAL SQ SCH (21:00)
[2016-05-09] MEDS ORDERED: ATORVASTATIN 80 MG TAB PO SCH (21:00)
[2016-05-09 21:15] LABS: Glucose,Whole Blood 235 mg/dL (75-99)
[2016-05-10] MEDS: CARVEDILOL 12.5 MG TAB PO SCH (06:27)
[2016-05-10 06:29] LABS: Glucose,Whole Blood 261 mg/dL (75-99)
[2016-05-10] MEDS: INSULIN LISPRO (humaLOG) 300 UNIT/3 ML VIAL SQ SCH (06:29)
[2016-05-10 06:54] LABS: Anion Gap 12 mmol/L; Blood Urea Nitrogen 14 mg/dL (9-20); Carbon Dioxide 24 mmol/L (22-30); Chloride 99 mmol/L (98-107); Cholesterol 155 mg/dL (<200); Glucose 248 mg/dL (74-99); HDL Cholesterol 31 mg/dL (40-60); Non-African American GFR(MDRD) >60 (>60 ml/min/1.73 sqM); Potassium 4.9 mmol/L (3.5-5.1); Sodium 135 mmol/L (137-145); Triglycerides 144 mg/dL (<150)
[2016-05-10] MEDS: NICOTINE 21MG/24HR PATCH TRANSDERM SCH (07:53)
[2016-05-10] MEDS: LOSARTAN 25 MG TAB PO SCH (07:54)
[2016-05-10] MEDS: ISOSORBIDE MONONITRATE ER 60 MG TAB.ER.24H PO SCH (07:54)
[2016-05-10] MEDS: metFORMIN 500 MG TAB PO SCH (07:54)
[2016-05-10] MEDS: ASPIRIN 81 MG CHEW PO SCH (07:54)
[2016-05-10] MEDS: BENZONATATE 100 MG CAP PO SCH (07:54)
[2016-05-10] MEDS: MONTELUKAST 10 MG TAB PO SCH (07:54)
[2016-05-10 08:03] VITALS: BP 138/71; PULSE 79; RESP 16; TEMP 98.4
--- NOTE | 2016-05-10 08:15 | P.DS ---
Providers Date of admission: 05/09/16 04:20 Attending physician: Byron Torres Primary care physician: Byron Torres - Discharge Diagnosis(es) (1) COPD exacerbation Current Visit: Yes Status: Acute (2) Chest pain Current Visit: Yes Status: Acute (3) Fever Current Visit: Yes Status: Acute (4) Diabetes Current Visit: Yes Status: Chronic (5) Congestive heart failure Current Visit: No Status: Acute (6) HTN (hypertension) Current Visit: No Status: Chronic Priority: Medium Hospital Course: This is a discharge summary 55-year-old white male essentially admitted for chest pain. My Impression was ruled out. He has an underlying history of cardiac myopathy. The patient has an underlying history of 35% ejection fraction and is candidate for AICD but we will withhold the secondary to his history of noncompliance and continued cigarette usage. He does understand what 's at stake and I have had a long discussion with him to discontinue cigarette use. He is ruled out for myocardial infraction with keep on antibiotic treatment for chronic bronchitis the patient is to follow-up with me in approximately one week. Patient Condition at Discharge: Stable Plan - Discharge Summary New Discharge Prescriptions: Carvedilol [Coreg*] 12.5 mg PO BID-W/MEALS #60 tab Levofloxacin [Levaquin] 750 mg PO DAILY #7 tab Spironolactone [Aldactone] 12.5 mg PO DAILY #30 tab Discharge Medication List Clopidogrel [Plavix] 75 mg PO DAILY 08/16/13 [History] Isosorbide Mononitrate [Imdur] 60 mg PO DAILY 08/16/13 [History] amLODIPine [Norvasc] 5 mg PO DAILY 08/16/13 [History] metFORMIN HCL 1,000 mg PO BID 08/16/13 [History] Atorvastatin [Lipitor] 80 mg PO HS 12/02/14 [History] Losartan [Cozaar] 25 mg PO DAILY 12/02/14 [History] Montelukast [Singulair] 10 mg PO DAILY 12/02/14 [History] Atenolol [Tenormin] 50 mg PO BID 05/19/15 [History] Famotidine [Pepcid] 40 mg PO HS 05/19/15 [History] Insulin Detemir [Levemir] 48 unit SQ HS 05/19/15 [History] Metoprolol Tartrate [Lopressor] 100 mg PO BID 05/19/15 [History] Aspirin 81 mg PO DAILY chew 05/10/16 [Rx] Carvedilol [Coreg*] 12.5 mg PO BID-W/MEALS #60 tab 05/10/16 [Rx] Levofloxacin [Levaquin] 750 mg PO DAILY #7 tab 05/10/16 [Rx] Nitroglycerin Sl Tabs [Nitrostat] 0.4 mg SUBLINGUAL Q5M PRN #0 tab 05/10/16 [Rx] Spironolactone [Aldactone] 12.5 mg PO DAILY #30 tab 05/10/16 [Rx] Follow up Appointment(s)/Referral(s): Byron Torres MD [Primary Care Provider] - 3 Days
[2016-05-10] MEDS ORDERED: LEVOFLOXACIN 750MG-D5W PMX 750 MG in DEXTROSE/WATER 1 150ML.BAG IVPB SCH (09:00)
[2016-05-10] MEDS ORDERED: SPIRONOLACTONE 25 MG TAB PO SCH (09:00)
[2016-05-10] MEDS ORDERED: ASPIRIN 325 MG TAB PO SCH (09:00)
== END 2016-05-10 10:20 | disposition home or self-care (01) | DRG 191 ==
LOC: EC 01:36 → 6SEL 04:20
PROVIDERS: ADMIT Family Medicine; ATTEND Family Medicine
DX: J44.1 Chronic obstructive pulmonary disease with (acute) exacerbation (principal); I50.22 Chronic systolic (congestive) heart failure; E87.5 Hyperkalemia; I10 Essential (primary) hypertension; E11.9 Type 2 diabetes mellitus without complications; E78.5 Hyperlipidemia, unspecified; F17.200 Nicotine dependence, unspecified, uncomplicated; I25.10 Atherosclerotic heart disease of native coronary artery without angina pectoris; I25.2 Old myocardial infarction; I25.5 Ischemic cardiomyopathy; I49.3 Ventricular premature depolarization; Z91.19 Patient's noncompliance with other medical treatment and regimen; Z95.1 Presence of aortocoronary bypass graft; Z95.5 Presence of coronary angioplasty implant and graft; Z79.899 Other long term (current) drug therapy; Z79.02 Long term (current) use of antithrombotics/antiplatelets; Z79.84 Long term (current) use of oral hypoglycemic drugs; Z86.14 Personal history of Methicillin resistant Staphylococcus aureus infection
CPT/HCPCS: 36415; 71020; 80048; 80053; 80061; 82550; 82553; 83036; 83605; 83735; 83880; 84484; 85025; 85049; 85610; 85730; 87040; 87502; 93005; 93306; 94640; 94760; 96361; 96365; 96366; 96368; 96376; 99285

== ENCOUNTER 2016-10-15 19:32 | Inpatient (IN) | payer MEDICARE, OTHER ==
[2016-10-15 20:10] LABS: Basophils % (A) 1 %; CH 33.7; CHCM 34.3; Eosinophils # (A) 0.1 k/uL (0-0.7); Eosinophils % (A) 1 %; HCT 50.8 % (39.0-53.0); HDW 2.75; HGB 16.6 gm/dL (13.0-17.5); Luc # (Auto) 0.07; Luc % (Auto) 1; Lymphocytes # (A) 1.3 k/uL (1.0-4.8); Lymphocytes % (A) 20 %; MCH 32.2 pg (25.0-35.0); MCHC 32.6 g/dL (31.0-37.0); MCV 98.7 fL (80.0-100.0); Mean Platelet Volume 10.3; Monocytes # (A) 0.4 k/uL (0-1.0); Monocytes % (A) 6 %; Neutrophils # (A) 4.7 k/uL (1.3-7.7); Neutrophils % (A) 72 %; RBC 5.14 m/uL (4.30-5.90); RDW 13.7 % (11.5-15.5); WBC 6.5 k/uL (3.8-10.6); WBC (Perox) 6.08
[2016-10-15 20:18] LABS: INR 1.1 (<1.2); Partial Thromboplastin Time 26.4 sec (22.0-30.0); Prothrombin Time 11.4 sec (9.0-12.0)
[2016-10-15 20:21] LABS: ALT 27 U/L (21-72); AST 17 U/L (17-59); Alkaline Phosphatase 94 U/L (38-126); Anion Gap 11 mmol/L; Blood Urea Nitrogen 13 mg/dL (9-20); Calcium 9.6 mg/dL (8.4-10.2); Carbon Dioxide 25 mmol/L (22-30); Chloride 101 mmol/L (98-107); Glucose 407 mg/dL (74-99); Magnesium 1.5 mg/dL (1.6-2.3); Non-African American GFR(MDRD) >60 (>60 ml/min/1.73 sqM); Potassium 4.2 mmol/L (3.5-5.1); Sodium 137 mmol/L (137-145); Total Bilirubin 0.3 mg/dL (0.2-1.3); Total Protein 6.5 g/dL (6.3-8.2)
--- NOTE | 2016-10-15 20:31 | XR ---
EXAMINATION TYPE: XR chest 2V DATE OF EXAM: 10/15/2016 COMPARISON: 05/09/2016 HISTORY: Chest pain TECHNIQUE: Frontal and lateral views of the chest are obtained. FINDINGS: Heart and mediastinum are normal. Lungs are clear. Diaphragm is normal. There are sternal wires. There are chest leads. Bony thorax is intact. There is some coarsening of interstitial marking s. IMPRESSION: Mild pulmonary fibrotic changes. No heart failure. No change.
[2016-10-15 20:41] LABS: Creatine Kinase MB 0.7 ng/mL (0.0-2.4)
[2016-10-15 20:48] LABS: Troponin I 0.048 ng/mL (0.000-0.034)
[2016-10-15] MEDS ORDERED: NITROGLYCERIN SL TABS 0.4 MG TAB SUBLINGUAL STA (20:52)
[2016-10-15] MEDS ORDERED: ASPIRIN 325 MG TAB PO STA (20:52)
--- NOTE | 2016-10-15 20:58 | CT ---
EXAMINATION TYPE: CT brain wo con DATE OF EXAM: 10/15/2016 COMPARISON: 10/09/2012 HISTORY: Chest pain and left arm numbness. CT DLP: 1029.9 mGycm Automated exposure control for dose reduction was used. FINDINGS: There is mild cerebral cortical atrophy. There is no mass effect nor midline shift. There is no sign of intracranial hemorrhage. The calvarium is intact. IMPRESSION: MILD ATROPHY. NO ACUTE INTRACRANIAL ABNORMALITY. THERE IS SLIGHT PROGRESSION COMPARED TO OLD CT SCAN.
[2016-10-15] MEDS ORDERED: HEPARIN SODIUM,PORCINE 5,000 UNIT/ML 1 ML VIAL IV ONE (22:08)
[2016-10-15] MEDS ORDERED: NITROGLYCERIN SL TABS 0.4 MG TAB SUBLINGUAL PRN (22:08)
[2016-10-15] MEDS ORDERED: HEPARIN SODIUM,PORCINE/D5W PMX 25,000 UNIT in DEXTROSE/WATER 1 500ML.BAG IV SCH (22:15)
--- NOTE | 2016-10-15 22:23 | ED ---
General Adult HPI - General Chief complaint: Chest Pain Stated complaint: chest pain/arm numbness Time Seen by Provider: 10/15/16 19:35 Source: patient Mode of arrival: wheelchair Limitations: no limitations - History of Present Illness Initial comments: 56-year-old male with history of ischemic cardiomyopathy status post CABG in 2012, hypertension, diabetes, current smoker approximately one pack a day, patient does state he cut back from previous 4 packs of cigarettes per day, presenting with sharp anterior chest pain and left arm pain. Patient also reports some left arm numbness. This began approximately 30 minutes prior to arrival. Patient was at rest when the symptoms began. He also reports some shortness of breath although he has chronic shortness of breath associated with his COPD and smoking history. Pain is currently 3 out of 10. - Related Data Home Medications Medication Instructions Recorded Confirmed Clopidogrel [Plavix] 75 mg PO DAILY 08/16/13 05/09/16 Isosorbide Mononitrate [Imdur] 60 mg PO DAILY 08/16/13 05/09/16 amLODIPine [Norvasc] 5 mg PO DAILY 08/16/13 05/09/16 metFORMIN HCL 1,000 mg PO BID 08/16/13 05/09/16 Atorvastatin [Lipitor] 80 mg PO HS 12/02/14 05/09/16 Losartan [Cozaar] 25 mg PO DAILY 12/02/14 05/09/16 Montelukast [Singulair] 10 mg PO DAILY 12/02/14 05/09/16 Atenolol [Tenormin] 50 mg PO BID 05/19/15 05/09/16 Famotidine [Pepcid] 40 mg PO HS 05/19/15 05/09/16 Insulin Detemir [Levemir] 48 unit SQ HS 05/19/15 05/09/16 Metoprolol Tartrate [Lopressor] 100 mg PO BID 05/19/15 05/09/16 Previous Rx's Medication Instructions Recorded Aspirin 81 mg PO DAILY chew 05/10/16 Carvedilol [Coreg*] 12.5 mg PO BID-W/MEALS #60 tab 05/10/16 Levofloxacin [Levaquin] 750 mg PO DAILY #7 tab 05/10/16 Nitroglycerin Sl Tabs [Nitrostat] 0.4 mg SUBLINGUAL Q5M PRN #0 tab 05/10/16 Spironolactone [Aldactone] 12.5 mg PO DAILY #30 tab 05/10/16 Allergies Allergy/AdvReac Type Severity Reaction Status Date / Time No Known Allergies Allergy Verified 10/15/16 19:39 Review of Systems ROS Statement: Those systems with pertinent positive or pertinent negative responses have been documented in the HPI. ROS Other: All systems not noted in ROS Statement are negative. Past Medical History Past Medical History: Coronary Artery Disease (CAD), Chest Pain / Angina, Heart Failure, COPD, Diabetes Mellitus, Hyperlipidemia, Hypertension, Myocardial Infarction ([place]), Pneumonia Additional Past Medical History / Comment(s): X5 [place] Last Myocardial Infarction Date:: 2012 History of Any Multi-Drug Resistant Organisms: MRSA Date of last positivie culture/infection: 08/04/2010 MDRO Source:: right leg wound Past Surgical History: Coronary Bypass/CABG, Heart Catheterization With Stent, Hernia Repair Additional Past Surgical History / Comment(s): QUAD BYPASS, LT INGUINAL HERNIA REPAIR RT HAND RING FINGER LOST TIP OF FINGER, PT STATED HAS 5 CARDIAC STENTS, Past Anesthesia/Blood Transfusion Reactions: No Reported Reaction Date of Last Stent Placement:: 2012 Past Psychological History: No Psychological Hx Reported Smoking Status: Current every day smoker Past Alcohol Use History: None Reported Past Drug Use History: None Reported - Past Family History Father Additional Family Medical History / Comment(s): AT AGE 46 FROM COMPLICATIONS FROM ALCOHOLISM Mother Family Medical History: Cancer Additional Family Medical History / Comment(s): AT AGE 71 CANCER General Exam Limitations: no limitations General appearance: alert, in no apparent distress Head exam: Present: atraumatic, normocephalic Eye exam: Present: normal appearance, PERRL ENT exam: Present: normal exam, mucous membranes moist Neck exam: Present: normal inspection. Absent: tenderness, meningismus Respiratory exam: Present: wheezes, other (There is an expiratory wheeze, good air entry, no respiratory distress). Absent: respiratory distress Cardiovascular Exam: Present: regular rate, normal rhythm GI/Abdominal exam: Present: soft. Absent: distended, tenderness Rectal exam: Present: normal inspection. Absent: black stool, bloody stool Extremities exam: Present: normal inspection, normal capillary refill. Absent: pedal edema Neurological exam: Present: alert, oriented X3. Absent: CN II-XII intact, motor sensory deficit Psychiatric exam: Present: normal affect, normal mood Skin exam: Present: warm, dry. Absent: cyanosis, diaphoretic Course Vital Signs 10/15/16 10/15/16 19:38 21:03 Temperature 97.8 F Pulse Rate 109 H 89 Respiratory 20 18 Rate Blood Pressure 170/90 168/87 O2 Sat by Pulse 95 96 Oximetry - Reevaluation(s) Reevaluation #1: 10/15/16 22:19 On reevaluation, chest pain has improved EKG Findings - EKG Comments: EKG Findings:: EKG shows sinus rhythm with frequent PVCs ventricular rate 99, AR interval 150, QRS duration 134, QTC 485, there is a nonspecific intraventricular block, ST segment depression in V5 and V6, this is relatively unchanged from EKG in May 2016 Medical Decision Making - Medical Decision Making 56-year-old male history of ischemic cardiomyopathy, hypertension, diabetes, coronary artery disease status post CABG in 2012 presents with chest pain. On initial crushing chest pain does seem atypical. It was sharp in nature began at rest and resolved without treatment. EKG shows no ST segment elevation, there is ST segment changes, this is compared to EKG obtained in May is relatively unchanged. Initial troponin is elevated at 0.048. Other laboratory studies are unremarkable. Patient's hemoglobin is stable, there is no melena or [place] blood on rectal exam. Hemoccult is pending. Patient will be started on heparin drip. Case is discussed with cardiology. Serial troponins will be ordered. Diagnosis: NSTEMI - Lab Data Result diagrams: 10/15/16 19:40 10/15/16 19:40 Lab Results 10/15/16 10/15/16 10/15/16 Range/Units 19:40 19:40 19:40 WBC 6.5 (3.8-10.6) k/uL RBC 5.14 (4.30-5.90) m/uL Hgb 16.6 (13.0-17.5) gm/dL Hct 50.8 (39.0-53.0) % MCV 98.7 (80.0-100.0) fL MCH 32.2 (25.0-35.0) pg MCHC 32.6 (31.0-37.0) g/dL RDW 13.7 (11.5-15.5) % Plt Count 128 L (150-450) k/uL Neutrophils % 72 % Lymphocytes % 20 % Monocytes % 6 % Eosinophils % 1 % Basophils % 1 % Neutrophils # 4.7 (1.3-7.7) k/uL Lymphocytes # 1.3 (1.0-4.8) k/uL Monocytes # 0.4 (0-1.0) k/uL Eosinophils # 0.1 (0-0.7) k/uL Basophils # 0.0 (0-0.2) k/uL PT (9.0-12.0) sec INR (<1.2) APTT (22.0-30.0) sec Sodium 137 (137-145) mmol/L Potassium 4.2 (3.5-5.1) mmol/L Chloride 101 (98-107) mmol/L Carbon Dioxide 25 (22-30) mmol/L Anion Gap 11 mmol/L BUN 13 (9-20) mg/dL Creatinine 0.81 (0.66-1.25) mg/dL Est GFR (MDRD) Af Amer >60 (>60 ml/min/1.73 sqM) Est GFR (MDRD) Non-Af >60 (>60 ml/min/1.73 sqM) Glucose 407 H (74-99) mg/dL Calcium 9.6 (8.4-10.2) mg/dL Magnesium 1.5 L (1.6-2.3) mg/dL Total Bilirubin 0.3 (0.2-1.3) mg/dL AST 17 (17-59) U/L ALT 27 (21-72) U/L Alkaline Phosphatase 94 (38-126) U/L Total Creatine Kinase 25 L (55-170) U/L CK-MB (CK-2) 0.7 (0.0-2.4) ng/mL CK-MB (CK-2) Rel Index 2.8 Troponin I 0.048 H* (0.000-0.034) ng/mL NT-Pro-B Natriuret Pep pg/mL Total Protein 6.5 (6.3-8.2) g/dL Albumin 3.9 (3.5-5.0) g/dL 10/15/16 10/15/16 Range/Units 19:40 19:40 WBC (3.8-10.6) k/uL RBC (4.30-5.90) m/uL Hgb (13.0-17.5) gm/dL Hct (39.0-53.0) % MCV (80.0-100.0) fL MCH (25.0-35.0) pg MCHC (31.0-37.0) g/dL RDW (11.5-15.5) % Plt Count (150-450) k/uL Neutrophils % % Lymphocytes % % Monocytes % % Eosinophils % % Basophils % % Neutrophils # (1.3-7.7) k/uL Lymphocytes # (1.0-4.8) k/uL Monocytes # (0-1.0) k/uL Eosinophils # (0-0.7) k/uL Basophils # (0-0.2) k/uL PT 11.4 (9.0-12.0) sec INR 1.1 (<1.2) APTT 26.4 (22.0-30.0) sec Sodium (137-145) mmol/L Potassium (3.5-5.1) mmol/L Chloride (98-107) mmol/L Carbon Dioxide (22-30) mmol/L Anion Gap mmol/L BUN (9-20) mg/dL Creatinine (0.66-1.25) mg/dL Est GFR (MDRD) Af Amer (>60 ml/min/1.73 sqM) Est GFR (MDRD) Non-Af (>60 ml/min/1.73 sqM) Glucose (74-99) mg/dL Calcium (8.4-10.2) mg/dL Magnesium (1.6-2.3) mg/dL Total Bilirubin (0.2-1.3) mg/dL AST (17-59) U/L ALT (21-72) U/L Alkaline Phosphatase (38-126) U/L Total Creatine Kinase (55-170) U/L CK-MB (CK-2) (0.0-2.4) ng/mL CK-MB (CK-2) Rel Index Troponin I (0.000-0.034) ng/mL NT-Pro-B Natriuret Pep 2000 pg/mL Total Protein (6.3-8.2) g/dL Albumin (3.5-5.0) g/dL Critical Care Time Critical Care Time: Yes Total Critical Care Time: 35 Disposition Clinical Impression: Acute non-ST segment elevation myocardial infarction (STEMI) following previous myocardial infarction Disposition: ADMITTED IP TO THIS HOSP Condition: Stable Referrals: Byron Torres MD [Primary Care Provider] - 1-2 days Decision to Admit Reason: Admit from EC Decision Date: 10/15/16 Decision Time: 22:26
[2016-10-15] MEDS: SODIUM CHLORIDE 0.9% 1,000 ML IV SCH (22:49)
[2016-10-15 23:25] LABS: Glucose,Whole Blood 282 mg/dL (75-99)
[2016-10-15 23:36] VITALS: BMI 34.4
[2016-10-16 02:09] LABS: Creatine Kinase MB 0.8 ng/mL (0.0-2.4)
[2016-10-16 02:12] LABS: Troponin I 0.059 ng/mL (0.000-0.034)
[2016-10-16 06:41] LABS: Glucose,Whole Blood 233 mg/dL (75-99)
[2016-10-16] MEDS: INSULIN LISPRO (humaLOG) 300 UNIT/3 ML VIAL SQ SCH ×4 (06:59→21:21)
[2016-10-16 07:11] LABS: Cholesterol 147 mg/dL (<200); HDL Cholesterol 32 mg/dL (40-60)
[2016-10-16] MEDS ORDERED: CARVEDILOL 12.5 MG TAB PO SCH (07:30)
[2016-10-16 07:36] LABS: Troponin I 0.059 ng/mL (0.000-0.034)
--- NOTE | 2016-10-16 07:48 | P.HPIM ---
History of Present Illness H&P Date: 10/16/16 Chief Complaint: Chest pain. This is a 56-year-old white male who is fairly well-known to my practice who has an underlying history of coronary disease and diabetes. The patient states yesterday he had significant chest pressure with radiation to the arm. His left arm states still some numbness. No nausea or diaphoresis stated. But given his overall element of comorbidities with tobacco abuse, he was appropriate admitted. Troponin has been marginal. Review of Systems Constitutional: Denies chills, Denies fever Eyes: denies blurred vision, denies pain Ears, nose, mouth and throat: Denies headache, Denies sore throat Cardiovascular: Reports chest pain, Reports dyspnea on exertion Respiratory: Denies cough Gastrointestinal: Denies abdominal pain, Denies diarrhea, Denies nausea, Denies vomiting Musculoskeletal: Denies myalgias Integumentary: Denies pruritus, Denies rash Past Medical History Past Medical History: Coronary Artery Disease (CAD), Chest Pain / Angina, Heart Failure, COPD, Diabetes Mellitus, Hyperlipidemia, Hypertension, Myocardial Infarction (DC), Pneumonia Additional Past Medical History / Comment(s): X5 DC Last Myocardial Infarction Date:: 2012 History of Any Multi-Drug Resistant Organisms: MRSA Date of last positivie culture/infection: 08/04/2010 MDRO Source:: right leg wound Past Surgical History: Coronary Bypass/CABG, Heart Catheterization With Stent, Hernia Repair Additional Past Surgical History / Comment(s): QUAD BYPASS, LT INGUINAL HERNIA REPAIR RT HAND RING FINGER LOST TIP OF FINGER, PT STATED HAS 5 CARDIAC STENTS, Past Anesthesia/Blood Transfusion Reactions: No Reported Reaction Date of Last Stent Placement:: 2012 Past Psychological History: No Psychological Hx Reported Smoking Status: Current every day smoker Past Alcohol Use History: None Reported Additional Past Alcohol Use History / Comment(s): STARTED SMOKING AT AGE 11 SMOKES 2 PACKS EVERY 3 DAYS Past Drug Use History: None Reported - Past Family History Father Additional Family Medical History / Comment(s): AT AGE 46 FROM COMPLICATIONS FROM ALCOHOLISM Mother Family Medical History: Cancer Additional Family Medical History / Comment(s): AT AGE 71 CANCER Medications and Allergies Home Medications Medication Instructions Recorded Confirmed Type Clopidogrel [Plavix] 75 mg PO DAILY 08/16/13 05/09/16 History Isosorbide Mononitrate [Imdur] 60 mg PO DAILY 08/16/13 05/09/16 History amLODIPine [Norvasc] 5 mg PO DAILY 08/16/13 05/09/16 History metFORMIN HCL 1,000 mg PO BID 08/16/13 05/09/16 History Atorvastatin [Lipitor] 80 mg PO HS 12/02/14 05/09/16 History Losartan [Cozaar] 25 mg PO DAILY 12/02/14 05/09/16 History Montelukast [Singulair] 10 mg PO DAILY 12/02/14 05/09/16 History Atenolol [Tenormin] 50 mg PO BID 05/19/15 05/09/16 History Famotidine [Pepcid] 40 mg PO HS 05/19/15 05/09/16 History Insulin Detemir [Levemir] 48 unit SQ HS 05/19/15 05/09/16 History Metoprolol Tartrate [Lopressor] 100 mg PO BID 05/19/15 05/09/16 History Allergies Allergy/AdvReac Type Severity Reaction Status Date / Time No Known Allergies Allergy Verified 10/15/16 19:39 Physical Exam Vitals: Vital Signs Temp Pulse Pulse Resp BP BP Pulse Ox 10/16/16 05:47 96.6 F L 95 16 150/97 93 L 10/16/16 04:10 96.9 F L 96 18 184/87 92 L 10/15/16 23:18 96.9 F L 96 20 184/87 92 L 10/15/16 23:07 86 18 168/77 95 10/15/16 22:16 90 18 165/89 96 10/15/16 21:03 89 18 168/87 96 10/15/16 19:38 97.8 F 109 H 20 170/90 95 Intake and Output 10/15/16 10/16/16 10/16/16 22:59 06:59 14:59 Other: Weight 108.862 kg 108.9 kg - Constitutional General appearance: no acute distress - EENT Eyes: EOMI - Neck Neck: no lymphadenopathy - Respiratory Respiratory: bilateral: CTA - Cardiovascular Rhythm: regular Heart sounds: normal: S1, S2 - Gastrointestinal General gastrointestinal: soft, no tenderness - Integumentary Integumentary: no cellulitis Results CBC & Chem 7: 10/15/16 19:40 10/15/16 19:40 Labs: Abnormal Lab Results - Last 24 Hours (Table) 10/15/16 10/15/16 10/15/16 Range/Units 19:40 19:40 19:40 Plt Count 128 L (150-450) k/uL Glucose 407 H (74-99) mg/dL POC Glucose (mg/dL) (75-99) mg/dL Magnesium 1.5 L (1.6-2.3) mg/dL Total Creatine Kinase 25 L (55-170) U/L Troponin I 0.048 H* (0.000-0.034) ng/mL Triglycerides (<150) mg/dL HDL Cholesterol (40-60) mg/dL 10/15/16 10/16/16 10/16/16 Range/Units 23:23 01:11 06:34 Plt Count (150-450) k/uL Glucose (74-99) mg/dL POC Glucose (mg/dL) 282 H (75-99) mg/dL Magnesium (1.6-2.3) mg/dL Total Creatine Kinase 23 L 21 L (55-170) U/L Troponin I 0.059 H* 0.059 H* (0.000-0.034) ng/mL Triglycerides (<150) mg/dL HDL Cholesterol (40-60) mg/dL 10/16/16 10/16/16 Range/Units 06:34 06:38 Plt Count (150-450) k/uL Glucose (74-99) mg/dL POC Glucose (mg/dL) 233 H (75-99) mg/dL Magnesium (1.6-2.3) mg/dL Total Creatine Kinase (55-170) U/L Troponin I (0.000-0.034) ng/mL Triglycerides 248 H (<150) mg/dL HDL Cholesterol 32 L (40-60) mg/dL Assessment and Plan (1) Chest pain Status: Acute (2) Elevated troponin Status: Acute (3) HTN (hypertension) Status: Chronic Plan: Given his overall history, cardiology will likely do some type of stress testing versus chronic catheterization. Reconcile medications. Smoking cessation again discussed at length with the patient. See orders otherwise.
--- NOTE | 2016-10-16 08:06 | P.CRDCN ---
History of Present Illness Consult date: 10/16/16 Requesting physician: Keith Patricia Consult reason: chest pain Chief complaint: Chest Pain and left arm numbness History of present illness: This is a 56-year-old gentleman with known history of coronary artery disease and prior bypass surgery in 2012, ischemic cardiomyopathy, diabetes, hypertension, hyperlipidemia, diabetes, COPD, nicotine dependence, he used to follow with Dr. Ryan in the office, heDr. Jorgensen. Patient did have a heart catheterization performed in February 2014 which revealed a patent PORTER to the LAD, saphenous vein graft to the right coronary artery was patent, saphenous vein graft to the obtuse marginal totally closed off and saphenous vein graft to the diagonal closed off at the distal anastomotic site with no antegrade flow, medical therapy was advised at that time. Patient presents to the hospital on this admission with symptoms of left arm numbness which started after dinner last evening. Patient states he has stepped outside of the restaurant after dinner, noticed his arm to feel quite numb and tingling. He states that on his drive home he continued to have the numbness and also developed a discomfort in the left upper chest area. For this reason he came to the emergency room for further evaluation. EKG on presentation here showed a sinus rhythm with lateral ST depression. Repeat EKG was performed this morning which showed a normal sinus rhythm, occasional PVCs and lateral ST depression. Chest x-ray revealed mild pulmonary fibrotic changes with no acute heart failure. CAT scan of the brain revealed mild atrophy. No acute intracranial abnormality seen. CBC, hemoglobin 16.6, platelet count 128, potassium 4.2, BUN 13, creatinine 0.8. Troponins 0.04, 0.05, 0.05. BNP level 2000. Magnesium level I.5. Blood pressure on arrival to the emergency room 170 /90 with a heart rate of 100, 95% on room air. At the time of my examination this morning, he is currently chest pain free denies any left arm numbness. Past Medical History Past Medical History: Coronary Artery Disease (CAD), Chest Pain / Angina, Heart Failure, COPD, Diabetes Mellitus, Hyperlipidemia, Hypertension, Myocardial Infarction (ID), Pneumonia Additional Past Medical History / Comment(s): X5 ID Last Myocardial Infarction Date:: 2012 History of Any Multi-Drug Resistant Organisms: MRSA Date of last positivie culture/infection: 08/04/2010 MDRO Source:: right leg wound Past Surgical History: Coronary Bypass/CABG, Heart Catheterization With Stent, Hernia Repair Additional Past Surgical History / Comment(s): QUAD BYPASS, LT INGUINAL HERNIA REPAIR RT HAND RING FINGER LOST TIP OF FINGER, PT STATED HAS 5 CARDIAC STENTS, Past Anesthesia/Blood Transfusion Reactions: No Reported Reaction Date of Last Stent Placement:: 2012 Past Psychological History: No Psychological Hx Reported Smoking Status: Current every day smoker Past Alcohol Use History: None Reported Additional Past Alcohol Use History / Comment(s): STARTED SMOKING AT AGE 11 SMOKES 2 PACKS EVERY 3 DAYS Past Drug Use History: None Reported - Past Family History Father Additional Family Medical History / Comment(s): AT AGE 46 FROM COMPLICATIONS FROM ALCOHOLISM Mother Family Medical History: Cancer Additional Family Medical History / Comment(s): AT AGE 71 CANCER Medications and Allergies Home Medications Medication Instructions Recorded Confirmed Type Clopidogrel [Plavix] 75 mg PO DAILY 08/16/13 05/09/16 History Isosorbide Mononitrate [Imdur] 60 mg PO DAILY 08/16/13 05/09/16 History amLODIPine [Norvasc] 5 mg PO DAILY 08/16/13 05/09/16 History metFORMIN HCL 1,000 mg PO BID 08/16/13 05/09/16 History Atorvastatin [Lipitor] 80 mg PO HS 12/02/14 05/09/16 History Losartan [Cozaar] 25 mg PO DAILY 12/02/14 05/09/16 History Montelukast [Singulair] 10 mg PO DAILY 12/02/14 05/09/16 History Atenolol [Tenormin] 50 mg PO BID 05/19/15 05/09/16 History Famotidine [Pepcid] 40 mg PO HS 05/19/15 05/09/16 History Insulin Detemir [Levemir] 48 unit SQ HS 05/19/15 05/09/16 History Metoprolol Tartrate [Lopressor] 100 mg PO BID 05/19/15 05/09/16 History Allergies Allergy/AdvReac Type Severity Reaction Status Date / Time No Known Allergies Allergy Verified 10/15/16 19:39 Physical Exam Vitals: Vital Signs Temp Pulse Pulse Resp BP BP Pulse Ox 10/16/16 05:47 96.6 F L 95 16 150/97 93 L 10/16/16 04:10 96.9 F L 96 18 184/87 92 L 10/15/16 23:18 96.9 F L 96 20 184/87 92 L 10/15/16 23:07 86 18 168/77 95 10/15/16 22:16 90 18 165/89 96 10/15/16 21:03 89 18 168/87 96 10/15/16 19:38 97.8 F 109 H 20 170/90 95 Intake and Output 10/15/16 10/16/16 10/16/16 22:59 06:59 14:59 Other: Weight 108.862 kg 108.9 kg PHYSICAL EXAMINATION: HEENT: Head is atraumatic, normocephalic. Pupils equal, round. Neck is supple. There is no elevated jugular venous pressure. HEART EXAMINATION: Heart S1 S2 1 systolic murmur is heard. CHEST EXAMINATION: Lungs reveal some fine expiratory wheezing. ABDOMEN: Soft, nontender. Bowel sounds are heard. No organomegaly noted. EXTREMITIES: 1+ peripheral pulses with no evidence of peripheral edema and no calf tenderness noted. NEUROLOGIC patient is awake, alert and oriented -3. . Results 10/15/16 19:40 10/15/16 19:40 Cardiac Enzymes 10/15/16 10/15/16 10/16/16 Range/Units 19:40 19:40 01:11 AST 17 (17-59) U/L CK-MB (CK-2) 0.7 0.8 (0.0-2.4) ng/mL Troponin I 0.048 H* 0.059 H* (0.000-0.034) ng/mL 10/16/16 Range/Units 06:34 AST (17-59) U/L CK-MB (CK-2) 1.0 (0.0-2.4) ng/mL Troponin I 0.059 H* (0.000-0.034) ng/mL Coagulation 10/15/16 10/16/16 Range/Units 19:40 06:34 PT 11.4 (9.0-12.0) sec APTT 26.4 28.6 (22.0-30.0) sec Lipids 10/16/16 Range/Units 06:34 Triglycerides 248 H (<150) mg/dL Cholesterol 147 (<200) mg/dL HDL Cholesterol 32 L (40-60) mg/dL CBC 10/15/16 Range/Units 19:40 WBC 6.5 (3.8-10.6) k/uL RBC 5.14 (4.30-5.90) m/uL Hgb 16.6 (13.0-17.5) gm/dL Hct 50.8 (39.0-53.0) % Plt Count 128 L (150-450) k/uL Comprehensive Metabolic Panel 10/15/16 Range/Units 19:40 Sodium 137 (137-145) mmol/L Potassium 4.2 (3.5-5.1) mmol/L Chloride 101 (98-107) mmol/L Carbon Dioxide 25 (22-30) mmol/L BUN 13 (9-20) mg/dL Creatinine 0.81 (0.66-1.25) mg/dL Glucose 407 H (74-99) mg/dL Calcium 9.6 (8.4-10.2) mg/dL AST 17 (17-59) U/L ALT 27 (21-72) U/L Alkaline Phosphatase 94 (38-126) U/L Total Protein 6.5 (6.3-8.2) g/dL Albumin 3.9 (3.5-5.0) g/dL Current Medications Generic Name Dose Route Start Last Admin Trade Name Freq PRN Reason Stop Dose Admin Amlodipine Besylate 5 mg 10/16/16 09:00 Norvasc PO DAILY [facility] Aspirin 325 mg 10/16/16 09:00 Aspirin PO DAILY [facility] Atorvastatin Calcium 80 mg 10/16/16 21:00 Lipitor PO HS [facility] Carvedilol 12.5 mg 10/16/16 07:30 10/16/16 06:57 Coreg PO 12.5 mg BID-W/MEALS [facility] Administration Clopidogrel Bisulfate 75 mg 10/16/16 09:00 Plavix PO DAILY [facility] Heparin Sodium/Dextrose 25,000 500 mls @ 20.03 mls/hr 10/15/16 22:15 22:50 unit/ IV Solution IV 9.18 units/kg/hr .Q24H SHEELA 20 mls/hr Protocol Administration 9.2 UNITS/KG/HR Sodium Chloride 1,000 mls @ 50 mls/hr 10/15/16 22:15 10/15/16 22:49 Saline 0.9% IV 50 mls/hr .Q20H SHEELA Administration Insulin Detemir 48 unit 10/16/16 21:00 Levemir SQ HS SHEELA Insulin Human Lispro 0 unit 10/16/16 07:30 10/16/16 06:59 Humalog SQ 5 unit ACHS SHEELA Administration Protocol Isosorbide Mononitrate 60 mg 10/16/16 09:00 Imdur PO DAILY SHEELA Metformin HCl 1,000 mg 10/16/16 09:00 Glucophage PO BID SHEELA Nitroglycerin 0.4 mg 10/15/16 22:08 Nitrostat SUBLINGUAL Q5M PRN Chest Pain Spironolactone 12.5 mg 10/16/16 09:00 Aldactone PO DAILY SHEELA Intake and Output 10/15/16 10/16/16 10/16/16 22:59 06:59 14:59 Other: Weight 108.862 kg 108.9 kg 10/15/16 19:40 10/15/16 19:40 EKG Interpretations (text) EKG shows normal sinus rhythm with occasional PVCs and lateral ST depression Assessment and Plan Plan: Assessment and plan #1 chest pain, suggestive of acute coronary syndrome, troponins 0.048, 0.059, 0.059. EKG shows a normal sinus rhythm with occasional PVCs and lateral ST depression. #2 known history of coronary artery disease with prior bypass surgery in 2012, most recent cardiac catheterization performed in February 2014 which revealed patent PORTER to the LAD, saphenous vein graft to the right coronary artery was patent, saphenous vein graft to the obtuse marginal was totally closed off, saphenous vein graft to the diagonal closed off at the distal anastomotic site with no antegrade flow, medical therapy advised at that time. #3 hypertension #4 diabetes # 5 hyperlipidemia #6 nicotine dependence #7 COPD #8 hypomagnesemia #9 ischemic cardiomyopathy, most recent echo was performed in April of this year which revealed a moderately severe impaired LV function, ejection fraction 30-35%. Plan We will repeat an echocardiogram with Doppler study. Replace magnesium. We will discontinue the Norvasc as patient does have documented cardiomyopathy, start the patient on Cozaar 25 mg daily. He has been advised that he may need to undergo cardiac catheterization for definitive diagnosis. Further recommendations to follow. DNP note has been reviewed, I agree with a documented findings and plan of care. Patient was seen and examined.
[2016-10-16] MEDS ORDERED: ALPRAZolam 0.25 MG TAB PO PRN (08:50)
[2016-10-16] MEDS ORDERED: ATORVASTATIN 80 MG TAB PO STA (08:50)
[2016-10-16] MEDS ORDERED: ALPRAZolam 0.5 MG TAB PO PRN (08:50)
[2016-10-16] MEDS ORDERED: SODIUM CHLORIDE 0.9% 1,000 ML in EMPTY BAG 1 BAG IV ONE (08:50)
[2016-10-16] MEDS ORDERED: ASPIRIN 325 MG TAB PO STA (08:50)
[2016-10-16] MEDS ORDERED: NITROGLYCERIN SL TABS 0.4 MG TAB SUBLINGUAL PRN (08:50)
[2016-10-16] MEDS ORDERED: amLODIPine 5 MG TAB PO SCH (09:00)
[2016-10-16] MEDS: SPIRONOLACTONE 25 MG TAB PO SCH (09:14)
[2016-10-16] MEDS: ISOSORBIDE MONONITRATE ER 60 MG TAB.ER.24H PO SCH (09:14)
[2016-10-16] MEDS: ASPIRIN 325 MG TAB PO SCH (09:14)
[2016-10-16] MEDS: LOSARTAN 25 MG TAB PO SCH (09:14)
[2016-10-16] MEDS ORDERED: SODIUM CHLORIDE 0.9% 1,000 ML IV ONE (10:28)
[2016-10-16] MEDS ORDERED: LIDOCAINE 2% INJ 20 MG/ML (20 ML MDV) ONE (10:30)
[2016-10-16] MEDS ORDERED: MIDAZOLAM 2 MG/2 ML VIAL ONE (10:30)
[2016-10-16] MEDS ORDERED: diphenhydrAMINE 50 MG/ML 1 ML VIAL ONE (10:31)
[2016-10-16] MEDS ORDERED: CLOPIDOGREL 75 MG TAB ONE (10:36)
[2016-10-16] MEDS ORDERED: CLOPIDOGREL 75 MG TAB PO ONE (10:41)
[2016-10-16] MEDS ORDERED: MIDAZOLAM 2 MG/2 ML VIAL IVP ONE (10:57)
[2016-10-16] MEDS ORDERED: diphenhydrAMINE 50 MG/ML 1 ML VIAL IVP ONE (10:57)
[2016-10-16] MEDS ORDERED: LIDOCAINE 2% INJ 20 MG/ML SQ ONE (10:58)
[2016-10-16] MEDS ORDERED: FLUMAZENIL 0.1 MG/ML 5 ML VIAL IVP ONE ×2 (11:04→11:05)
[2016-10-16] MEDS ORDERED: IOHEXOL 350 MG/ML 125ML BOTTLE INJ ONE (11:15)
[2016-10-16] MEDS ORDERED: RX INFO: IV CONTRAST WAS GIVEN 1 EACH MISC MISCELLANE PRN (11:25)
[2016-10-16] MEDS ORDERED: SODIUM CHLORIDE 0.9% 1,000 ML IV SCH (11:30)
[2016-10-16] MEDS: CLOPIDOGREL 75 MG TAB PO SCH (11:56)
[2016-10-16] MEDS: metFORMIN 500 MG TAB PO SCH ×2 (11:57→21:21)
[2016-10-16 12:02] LABS: Glucose,Whole Blood 177 mg/dL (75-99)
[2016-10-16 12:19] LABS: Hemoglobin A1C 8.7 % (4.2-6.1)
--- NOTE | 2016-10-16 16:35 | ECHOF ---
Referral Reason:chest pain MEASUREMENTS -------- HEIGHT: 177.8 cm WEIGHT: 108.9 kg BP: 122/94 RVIDd: 3.7 cm (< 3.3) IVSd: 1.3 cm (0.6 - 1.1) LVIDd: 6.4 cm (3.9 - 5.3) LVPWd: 1.5 cm (0.6 - 1.1) IVSs: 1.9 cm LVIDs: 5.7 cm LVPWs: 1.9 cm LA Diam: 4.8 cm (2.7 - 3.8) LAESV Index (A-L): 31.30 ml/m Ao Diam: 4.0 cm (2.0 - 3.7) AV Cusp: 2.2 cm (1.5 - 2.6) MV EXCURSION: 21.020 mm (> 18.000) MV EF SLOPE: 70 mm/s (70 - 150) EPSS: 2.6 cm FINDINGS -------- This was a technically difficult study with suboptimal views. The left ventricle is moderately dilated. There is moderate concentric left ventricular hypertrophy. Overall left ventricular systolic function is severely impaired with, an EF between 20 - 25 %. Both the mean atrial pressure as well as the LV end diastolic pressure is elevated {E/E'}. The right ventricle is mildly enlarged. LA is midly dilated 29-33ml/m2. The right atrium was not well visualized. 1.5mg of Definity was utilized for enhancement of images There is mild aortic valve sclerosis. Mild mitral annular calcification present. Trace/mild (physiologic) pulmonic regurgitation. The aortic root is dilated measuring 4.0cm. Normal inferior vena cava with normal inspiratory collapse consistent with estimated right atrial pressure of 5 mmHg. There is no pericardial effusion. CONCLUSIONS -------- 1. This was a technically difficult study with suboptimal views. 2. There is mild aortic valve sclerosis. 3. Mild mitral annular calcification present. 4. Trace/mild (physiologic) pulmonic regurgitation. 5. The aortic root is dilated measuring 4.0cm. 6. Normal inferior vena cava with normal inspiratory collapse consistent with estimated right atrial pressure of 5 mmHg. 7. There is no pericardial effusion. 8. The left ventricle is moderately dilated. 9. There is moderate concentric left ventricular hypertrophy. 10. Overall left ventricular systolic function is severely impaired with, an EF between 20 - 25 %. 11. Both the mean atrial pressure as well as the LV end diastolic pressure is elevated {E/E'}. 12. The right ventricle is mildly enlarged. 13. LA is midly dilated 29-33ml/m2. 14. The right atrium was not well visualized. 15. 1.5mg of Definity was utilized for enhancement of images KENNEL MANAGER: Gali Hernandez RDCS
[2016-10-16 16:55] LABS: Glucose,Whole Blood 152 mg/dL (75-99)
[2016-10-16] MEDS: CARVEDILOL 12.5 MG TAB PO SCH (17:08)
[2016-10-16] MEDS: SODIUM CHLORIDE 0.9% 1,000 ML IV SCH (17:09)
[2016-10-16] MEDS ORDERED: ATORVASTATIN 80 MG TAB PO SCH (21:00)
[2016-10-16] MEDS ORDERED: INSULIN DETEMIR 100 UNIT/ML 10 ML VIAL SQ SCH (21:00)
[2016-10-16 21:02] LABS: Glucose,Whole Blood 248 mg/dL (75-99)
[2016-10-17 05:43] LABS: Glucose,Whole Blood 227 mg/dL (75-99)
[2016-10-17] MEDS: INSULIN LISPRO (humaLOG) 300 UNIT/3 ML VIAL SQ SCH ×2 (06:41→12:07)
[2016-10-17] MEDS: CARVEDILOL 12.5 MG TAB PO SCH (06:41)
--- NOTE | 2016-10-17 08:09 | P.DS ---
Providers Date of admission: 10/15/16 22:08 Attending physician: Byron Torres Consults: 10/15/16 22:08 Consult Physician Urgent Consulting Provider: Bal Zurita Consult Reason/Comments: NSTEMI Do you want consulting provider notified?: Already Contacted Primary care physician: Byron Torres - Discharge Diagnosis(es) (1) Chest pain Current Visit: No Status: Acute (2) Elevated troponin Current Visit: No Status: Acute (3) HTN (hypertension) Current Visit: No Status: Chronic Priority: Medium Hospital Course: The patient was admitted with elevated troponin and unstable angina. The patient ended up having cardiac catheterization. The patient will be discharged once cleared by cardiology. He is walking the halls and stable. We had a long discussion guarding smoking cessation and blood better blood sugar control. We will follow-up with him in about 5-7 days. Patient Condition at Discharge: Stable Plan - Discharge Summary New Discharge Prescriptions: New Losartan [Cozaar] 25 mg PO DAILY #30 tab Nitroglycerin Sl Tabs [Nitrostat] 0.4 mg SUBLINGUAL Q5M PRN tab PRN Reason: Chest Pain Continue metFORMIN HCL 1,000 mg PO BID amLODIPine [Norvasc] 5 mg PO DAILY Clopidogrel [Plavix] 75 mg PO DAILY Atorvastatin [Lipitor] 80 mg PO HS Insulin Detemir [Levemir] 48 unit SQ HS Famotidine [Pepcid] 40 mg PO HS Atenolol [Tenormin] 50 mg PO BID Metoprolol Tartrate [Lopressor] 100 mg PO BID Carvedilol [Coreg*] 12.5 mg PO BID-W/MEALS #60 tab Nitroglycerin Sl Tabs [Nitrostat] 0.4 mg SUBLINGUAL Q5M PRN #0 tab PRN Reason: Chest Pain Albuterol Sulfate [Proair Hfa] 1 - 2 puff INHALATION RT-Q6H PRN PRN Reason: Shortness Of Breath Isosorbide Mononitrate [Imdur] 120 mg PO DAILY Ipratropium/Albuterol Sulfate [Combivent Respimat Inhaler] 1 puff INHALATION RT-QID Ibuprofen [Motrin] 600 mg PO Q8HR PRN PRN Reason: Pain Spironolactone [Aldactone] 25 mg PO DAILY Albuterol Nebulized [Ventolin Nebulized] 2.5 mg INHALATION RT-Q6H PRN PRN Reason: Shortness Of Breath Discharge Medication List Clopidogrel [Plavix] 75 mg PO DAILY 08/16/13 [History] amLODIPine [Norvasc] 5 mg PO DAILY 08/16/13 [History] metFORMIN HCL 1,000 mg PO BID 08/16/13 [History] Atorvastatin [Lipitor] 80 mg PO HS 12/02/14 [History] Atenolol [Tenormin] 50 mg PO BID 05/19/15 [History] Famotidine [Pepcid] 40 mg PO HS 05/19/15 [History] Insulin Detemir [Levemir] 48 unit SQ HS 05/19/15 [History] Metoprolol Tartrate [Lopressor] 100 mg PO BID 05/19/15 [History] Carvedilol [Coreg*] 12.5 mg PO BID-W/MEALS #60 tab 05/10/16 [Rx] Nitroglycerin Sl Tabs [Nitrostat] 0.4 mg SUBLINGUAL Q5M PRN #0 tab 05/10/16 [Rx] Albuterol Nebulized [Ventolin Nebulized] 2.5 mg INHALATION RT-Q6H PRN 10/16/16 [ History] Albuterol Sulfate [Proair Hfa] 1 - 2 puff INHALATION RT-Q6H PRN 10/16/16 [ History] Ibuprofen [Motrin] 600 mg PO Q8HR PRN 10/16/16 [History] Ipratropium/Albuterol Sulfate [Combivent Respimat Inhaler] 1 puff INHALATION RT- QID 10/16/16 [History] Isosorbide Mononitrate [Imdur] 120 mg PO DAILY 10/16/16 [History] Spironolactone [Aldactone] 25 mg PO DAILY 10/16/16 [History] Losartan [Cozaar] 25 mg PO DAILY #30 tab 10/17/16 [Rx] Nitroglycerin Sl Tabs [Nitrostat] 0.4 mg SUBLINGUAL Q5M PRN tab 10/17/16 [Rx] Follow up Appointment(s)/Referral(s): Byron Torres MD [Primary Care Provider] - 1-2 days
[2016-10-17] MEDS: LOSARTAN 25 MG TAB PO SCH (08:21)
[2016-10-17] MEDS: metFORMIN 500 MG TAB PO SCH (08:21)
[2016-10-17] MEDS: ASPIRIN 325 MG TAB PO SCH (08:21)
[2016-10-17] MEDS: CLOPIDOGREL 75 MG TAB PO SCH (08:21)
[2016-10-17] MEDS: SPIRONOLACTONE 25 MG TAB PO SCH (08:22)
[2016-10-17] MEDS: ISOSORBIDE MONONITRATE ER 60 MG TAB.ER.24H PO SCH (08:22)
[2016-10-17 08:48] VITALS: RESP 20
--- NOTE | 2016-10-17 09:08 | CC ---
DATE OF SERVICE: 10/16/2016 PERFORMING PHYSICIAN: Isaac Parra MD, aircraft electrical systems specialist. PROCEDURE PERFORMED: 1. Left and right coronary angiogram. 2. SVG angiogram x2. 3. Left internal mammary artery angiogram. 4. Left heart catheterization. INDICATION: This is a pleasant 56-year-old gentleman who is known to have CAD and prior coronary artery bypass grafting with the last heart catheterization in 2014 showing severe triple vessel CAD with patent PORTER to LAD, patent SVG to diagonal and patent SVG to RCA presented to the hospital complaining of chest discomfort and was ruled in for acute non-STEMI. APPROACH: Right common femoral artery. COMPLICATIONS: None. LEVEL OF SEDATION: Moderate with sedation length of 20 minutes. PROCEDURE DESCRIPTION: After obtaining an informed consent, the patient was brought to the cardiac label sewer. The right common femoral artery was cannulated using micropuncture technique. The micropuncture wire passed easily then I placed a 6 [place] sheath in the right common femoral artery. Subsequently, I did selective left and right coronary angiogram using JL4 and JR4 catheters. SVG 2 diag angiogram and PORTER to LAD angiogram were performed using JR4 catheter. The SVG to RCA angiogram was performed using multipurpose catheter. After that, I did left heart catheterization using a JR4 catheter, which was flipped into LV then I did pull back. The procedure was completed without any complication. SELECTIVE CORONARY ANGIOGRAM: 1. The left main is a large caliber vessel. Distal left main has disease about 50%. It bifurcates into left circumflex and left anterior descending artery. 2. The left circumflex is a large caliber vessel. The proximal left circumflex appeared to have mild disease only. The mid left circumflex has a lesion. It seems to be in the range of 70% to 80%. This is just distal to bifurcation of the first obtuse marginal branch which has a tight lesion, appeared to be in the range of 80% to 90%, but it has no outflow. The very proximal left circumflex gives rise into the first obtuse marginal branch, which is a moderate caliber vessel with lesion in the proximal portion and mid portion appeared to be in the range of 70%. The mid left circumflex continued in the AV groove as moderate caliber vessel with mild diffuse disease. 3. The left anterior descending artery, the proximal ostial LAD appeared to have a lesion in the range of 70%. I can see competitive flow from the PORTER. 4. The RCA is 100% occluded in the proximal portion. 5. The SVG to diag is patent, but the outflow is very poor. 6. The PORTER to LAD is patent. 7. The SVG to right is patent. CONCLUSION: 1. Severe triple vessel coronary artery disease. 2. Patent left internal mammary artery to left anterior descending artery. 3. Patent saphenous vein graft to diagonal. 4. Patent saphenous vein graft to right coronary artery. 5. Findings are unchanged compared to prior heart catheterization. POSTPROCEDURE MANAGEMENT: 1. Maximize medical treatment. 2. Follow up with the patient. ALTAGRACIA
[2016-10-17 11:39] VITALS: BP 141/70; PULSE 83; TEMP 97.6
[2016-10-17 11:52] LABS: Glucose,Whole Blood 199 mg/dL (75-99)
--- NOTE | 2016-10-17 12:04 | P.PN ---
Subjective This is a 56-year-old gentleman with known history of coronary artery disease and prior bypass surgery in 2012, ischemic cardiomyopathy, diabetes, hypertension, hyperlipidemia, diabetes, COPD, nicotine dependence, he used to follow with Dr. Ryan in the office, heDr. Jorgensen. Patient did have a heart catheterization performed in February 2014 which revealed a patent PORTER to the LAD, saphenous vein graft to the right coronary artery was patent, saphenous vein graft to the obtuse marginal totally closed off and saphenous vein graft to the diagonal closed off at the distal anastomotic site with no antegrade flow, medical therapy was advised at that time. Patient presents to the hospital on this admission with symptoms of left arm numbness which started after dinner last evening. Patient states he has stepped outside of the restaurant after dinner, noticed his arm to feel quite numb and tingling. He states that on his drive home he continued to have the numbness and also developed a discomfort in the left upper chest area. For this reason he came to the emergency room for further evaluation. EKG on presentation here showed a sinus rhythm with lateral ST depression. Repeat EKG was performed this morning which showed a normal sinus rhythm, occasional PVCs and lateral ST depression. Chest x-ray revealed mild pulmonary fibrotic changes with no acute heart failure. CAT scan of the brain revealed mild atrophy. No acute intracranial abnormality seen. CBC, hemoglobin 16.6, platelet count 128, potassium 4.2, BUN 13, creatinine 0.8. Troponins 0.04, 0.05, 0.05. BNP level 2000. Magnesium level I.5. Blood pressure on arrival to the emergency room 170 /90 with a heart rate of 100, 95% on room air. At the time of my examination this morning, he is currently chest pain free denies any left arm numbness. 10/17/2016 Patient underwent a cardiac catheterization yesterday maximal medical therapy was advised. He was seen and examined this morning, up ambulating in the hallway. The morning. Denies any chest pain, no difficulty in breathing. Hemodynamically stable. Objective - Vital Signs Vital signs: Vital Signs Temp 97.6 F 10/17/16 11:38 Pulse 83 10/17/16 11:38 Resp 20 10/17/16 11:38 BP 141/70 10/17/16 11:38 Pulse Ox 95 10/17/16 11:38 Intake & Output 10/16/16 10/17/16 10/17/16 18:59 06:59 18:59 Intake Total 100 520 200 Output Total 1200 400 Balance -1100 120 200 Weight 107.1 kg Intake: IV 100 Intake, IV Titration 400 Amount Sodium Chloride 0.9% 1, 400 000 ml @ 50 mls/hr IV . Q20H SHEELA Rx#:[id number] Oral 120 200 Output: Urine 1200 400 Other: Voiding Method Toilet # Voids 0 1 - Exam PHYSICAL EXAMINATION: HEENT: Head is atraumatic, normocephalic. Pupils equal, round. Neck is supple. There is no elevated jugular venous pressure. HEART EXAMINATION: R to S1 and S2 systolic murmur is heard. CHEST EXAMINATION: Lungs are clear to auscultation and precussion. No chest wall tenderness is noted on palpation or with deep breathing. ABDOMEN: Soft, nontender. Bowel sounds are heard. No organomegaly noted. Right groin soft, no evidence of any hematoma. EXTREMITIES: 2+ peripheral pulses with no evidence of peripheral edema and no calf tenderness noted. NEUROLOGIC patient is awake, alert and oriented -3. . - Labs CBC & Chem 7: 10/15/16 19:40 10/15/16 19:40 Labs: Abnormal Lab Results - Last 24 Hours (Table) 10/16/16 10/16/16 10/16/16 Range/Units 06:34 12:00 16:49 POC Glucose (mg/dL) 177 H 152 H (75-99) mg/dL Hemoglobin A1c 8.7 H (4.2-6.1) % 10/16/16 10/17/16 10/17/16 Range/Units 21:00 05:41 11:46 POC Glucose (mg/dL) 248 H 227 H 199 H (75-99) mg/dL Hemoglobin A1c (4.2-6.1) % Assessment and Plan Plan: Assessment and plan #1 chest pain, suggestive of acute coronary syndrome, troponins 0.048, 0.059, 0.059. EKG shows a normal sinus rhythm with occasional PVCs and lateral ST depression. Status post cardiac catheterization, medical therapy advised. #2 known history of coronary artery disease with prior bypass surgery in 2012, most recent cardiac catheterization performed in February 2014 which revealed patent PORTER to the LAD, saphenous vein graft to the right coronary artery was patent, saphenous vein graft to the obtuse marginal was totally closed off, saphenous vein graft to the diagonal closed off at the distal anastomotic site with no antegrade flow, medical therapy advised at that time. #3 hypertension #4 diabetes # 5 hyperlipidemia #6 nicotine dependence #7 COPD #8 hypomagnesemia #9 ischemic cardiomyopathy, most recent echo was performed in April of this year which revealed a moderately severe impaired LV function, ejection fraction 30-35%. Plan Echocardiogram with Doppler study revealed a 20-25% ejection fraction. From cardiology's perspective, patient may be able to be discharged home today. Patient has a scheduled follow-up appointment with Dr. Jorgensen in the office at which time they were also didn't discuss timing of AICD implantation. He's been advised to keep that appointment. DNP note has been reviewed, I agree with a documented findings and plan of care. Patient was seen and examined.
== END 2016-10-17 13:03 | disposition home or self-care (01) | DRG 287 ==
LOC: EC 19:32 → 6SEL 22:08
PROVIDERS: ADMIT Family Medicine; ATTEND Family Medicine
PROC: B2151ZZ Fluoroscopy of Left Heart using Low Osmolar Contrast (ICD-10-PCS; 2016-10-16)
PROC: B2131ZZ Fluoroscopy of Multiple Coronary Artery Bypass Grafts using Low Osmolar Contrast (ICD-10-PCS; 2016-10-16)
PROC: B2111ZZ Fluoroscopy of Multiple Coronary Arteries using Low Osmolar Contrast (ICD-10-PCS; 2016-10-16)
PROC: 4A023N7 Measurement of Cardiac Sampling and Pressure, Left Heart, Percutaneous Approach (ICD-10-PCS; principal; 2016-10-16 10:15)
DX: I25.110 Atherosclerotic heart disease of native coronary artery with unstable angina pectoris (principal); I11.0 Hypertensive heart disease with heart failure; I25.82 Chronic total occlusion of coronary artery; I50.9 Heart failure, unspecified; E83.42 Hypomagnesemia; E11.9 Type 2 diabetes mellitus without complications; E78.5 Hyperlipidemia, unspecified; I25.2 Old myocardial infarction; I25.5 Ischemic cardiomyopathy; I49.3 Ventricular premature depolarization; J44.9 Chronic obstructive pulmonary disease, unspecified; F17.210 Nicotine dependence, cigarettes, uncomplicated; Z79.02 Long term (current) use of antithrombotics/antiplatelets; Z79.4 Long term (current) use of insulin; Z79.899 Other long term (current) drug therapy; Z95.1 Presence of aortocoronary bypass graft; Z95.5 Presence of coronary angioplasty implant and graft
CPT/HCPCS: 36415; 70450; 71020; 80053; 80061; 82272; 82550; 82553; 83036; 83735; 83880; 84484; 85025; 85610; 85730; 93005; 93306; 93459; 96365; 96375; 99291